=== PATIENT | male | born 1960 | race Caucasian/White ===

== ENCOUNTER → 2016-12-06 | Outpatient (CLI) | payer MEDICAID ==
[2016-12-06 07:13] LABS: Basophils % (A) 0 %; CH 30.3; CHCM 33.3; Eosinophils # (A) 0.2 k/uL (0-0.7); Eosinophils % (A) 3 %; HGB 14.5 gm/dL (13.0-17.5); Luc % (Auto) 3; Lymphocytes # (A) 1.9 k/uL (1.0-4.8); Lymphocytes % (A) 30 %; MCH 29.9 pg (25.0-35.0); MCHC 32.8 g/dL (31.0-37.0); MCV 91.2 fL (80.0-100.0); Mean Platelet Volume 6.9; Monocytes # (A) 0.4 k/uL (0-1.0); Monocytes % (A) 7 %; Neutrophils # (A) 3.6 k/uL (1.3-7.7); Neutrophils % (A) 57 %; RBC 4.83 m/uL (4.30-5.90); WBC 6.4 k/uL (3.8-10.6)
[2016-12-06 07:19] LABS: INR 1.1 (<1.1); Partial Thromboplastin Time 24.1 sec (22.0-30.0); Prothrombin Time 10.7 sec (9.0-12.0)
[2016-12-06 07:31] LABS: Appearance,Urine Clear (Clear); Bilirubin,Urine Negative (Negative); Glucose,Urine (UA) Negative (Negative); Ketones,Urine Negative (Negative); Leukocyte Esterase,Urine Negative (Negative); Nitrite,Urine Negative (Negative); PH, Urine 5.5 (5.0-8.0); Protein,Urine Negative (Negative); Specific Gravity,Urine 1.019 (1.001-1.035); UA Billing (MACRO vs. MICRO) CHEM; Urobilinogen,Urine <2.0 mg/dL (<2.0)
[2016-12-06 07:40] LABS: ALT 40 U/L (21-72); AST 22 U/L (17-59); Alkaline Phosphatase 78 U/L (38-126); Anion Gap 10 mmol/L; Blood Urea Nitrogen 16 mg/dL (9-20); Carbon Dioxide 27 mmol/L (22-30); Chloride 104 mmol/L (98-107); Glucose 112 mg/dL (74-99); Non-African American GFR(MDRD) >60 (>60 ml/min/1.73 sqM); Potassium 4.6 mmol/L (3.5-5.1); Sodium 141 mmol/L (137-145); Total Bilirubin 0.9 mg/dL (0.2-1.3); Total Protein 7.6 g/dL (6.3-8.2)
== END | disposition home or self-care (01) ==
LOC: LABPAT 06:30
PROVIDERS: ATTEND Orthopaedic Surgery
DX: Z01.812 Encounter for preprocedural laboratory examination (principal)
CPT/HCPCS: 36415; 80053; 81003; 85025; 85610; 85730; 87070

== ENCOUNTER 2016-12-30 10:44 | Inpatient (IN) | payer MEDICAID ==
--- NOTE | 2016-12-04 16:41 | CONS ---
DATE OF CONSULTATION: REASON FOR CONSULTATION: Preoperative medical evaluation. HISTORY OF PRESENT ILLNESS: This is a 56-year-old gentleman who is scheduled to undergo left total knee arthroplasty. Patient is seen preoperatively for the same. He recently underwent a right total knee arthroplasty with good results, and due to his continued progressively worsening left knee, he is scheduled for this other surgical procedure. Past medical history is significant for hypertension for the past about 22 years. No history of diabetes, lung disease, liver disease, kidney disease, ulcers, TB, hepatitis. No history of any rheumatic fever, myocardial infarction or CVA. He does have a thyroid goiter. He does have degenerative arthritis. Patient does have some gastroesophageal reflux. Past surgical history has included: 1. Tonsillectomy. 2. Right knee arthroscopy x2. 3. Subsequently a recent right total knee arthroplasty 10/08/16. No other surgeries. No complications during surgeries. PERSONAL HISTORY: Nonsmoker. No alcohol. VACCINATION: None recent. He does not take flu shots. SOCIAL HISTORY: Patient is . 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 Fairly active. FAMILY MEDICAL HISTORY: Father at the age of 64, renal disease, possible coronary artery disease. Mother's history unknown. One brother in good health. Three sisters in good health. Patient has a son and daughter in good health. REVIEW OF SYSTEMS: NEURO: Denies any headaches, dizziness. No double vision, blurred vision. No symptoms of TIA, syncope, seizures. PSYCH: No anxiety, depression. CARDIAC: No chest pain, angina, palpitations. RESPIRATORY: No shortness of breath, cough, hemoptysis. GI: No nausea, vomiting, abdominal pain, diarrhea, constipation. : No symptoms of dysuria, hematuria, urgency, frequency. EXTREMITIES: Pain in the left knee. CONSTITUTIONAL: No fever or chills. MEDICATION HISTORY: Patient takes: 1. Losartan 100 mg daily. 2. Levothyroxine 150 mcg daily. 3. Spironolactone/hydrochlorothiazide 25/25 one daily. 4. Simvastatin 10 mg daily. PHYSICAL EXAMINATION: Pleasant gentleman in no distress. VITAL SIGNS: Blood pressure 120/80. He weighs 250 pounds, 5 feet 11 inches tall. BMI of 34.9. HEENT: Normocephalic. NECK: Supple. No JVD. Pupils reactive. Neck reveals no JVD, carotid bruits. Patient does have a thyroid goiter. CHEST EXAMINATION: Clear to auscultation and percussion. CARDIAC: Normal S1, S2 with no gallops, murmurs, rubs. ABDOMEN: Soft. No palpable masses. Bowel sounds normal. No organomegaly. No abdominal bruits. EXTREMITIES: No edema. Good pulses, both upper and lower extremities. Neurologically awake, alert, oriented with well-coordinated movements. Joints reveal recent right knee arthroplasty with good results. Left knee has degenerative arthritis changes. LABORATORY ASSESSMENT: Pending. Recent EKG was normal. ASSESSMENT: 1. Hypertension, controlled. 2. Thyroid goiter. 3. Degenerative arthritis. PLAN: The patient is stable to undergo the planned surgical procedure. Electrolytes/BUN and creatinine to be checked preoperatively. Patient's condition discussed with the patient. Prognosis guarded.
[2016-12-16 12:14] VITALS: BMI 33.9
[~2016-12-30 10:44] MED LIST: ACETAMINOPHEN TAB 500 MG TAB PO ONE; CLINDAMYCIN 900 MG in DEXTROSE 5% IN WATER 50 ML IVPB ONE; DEXAMETHASONE SOD PHOSPHATE 10 MG/ML 1 ML VIAL IV ONE; HYDROmorphone 1 MG/ML 1 ML SYRINGE IVP PRN; LIDOCAINE 1% 20 ML VIAL (10MG/ML) FOR IV START INTRADERMA PRN; MELOXICAM 7.5 MG TAB PO ONE; MIDAZOLAM 2 MG/2 ML VIAL IV PRN; ONDANSETRON 4 MG/2 ML VIAL IVP ONE; SCOPOLAMINE 1.5MG/72HR PATCH TRANSDERM ONE; TRANEXAMIC ACID 1,000 MG in SODIUM CHLORIDE 0.9% 100 ML IVPB ONE; fentaNYL (PF) 50 MCG/ML 20 ML VIAL IVP PRN
[2016-12-30] MEDS: LACTATED RINGERS 1,000 ML IV SCH ×2 (11:24→23:45)
[2016-12-30] MEDS ORDERED: fentaNYL (PF) 50 MCG/ML 2 ML AMP IV ONE (11:31)
[2016-12-30] MEDS ORDERED: ROPIVACAINE 1,100 MG, SODIUM CHLORIDE 0.9% 330 ML MISCELLANE PRN ×2 (12:15)
--- NOTE | 2016-12-30 12:17 | P.ONQ ---
Anesthesiology Proc Note - PNB - Peripheral Nerve Block Performed Left Adductor Canal Infusion Time Out Performed: Yes Indication: Acute Post-Operative Pain, Analgesia Specifically requested for management of pain by DrYariel: Vasile Plasencia Sedation Type: Sedate with meaningful contact maintained Preparation: Sterile Prep Position: Supine Catheter Depth at Skin (cm): 5 Catheter: Indwelling Needle Types: On-Q Needle Size: 100mm (4") Needle Gauge: 20 Technique: Ultrasound Injectate: 0.5% Ropivacaine (see comment for volume) (20 cc) Blood Aspirated: No Pain Paresthesia on Injection Noted: No Resistance on Injection: Normal Events: Uneventful and Well Tolerated
[2016-12-30] MEDS ORDERED: fentaNYL (PF) 50 MCG/ML 2 ML AMP ONE (12:25)
[2016-12-30] MEDS ORDERED: MIDAZOLAM 2 MG/2 ML VIAL ONE (12:25)
[2016-12-30] MEDS ORDERED: PHENYLEPHRINE-0.9% NACL SYG 1 MG/10 ML SYRINGE ONE (12:25)
[2016-12-30] MEDS ORDERED: TRANEXAMIC ACID 1,000 MG/10 ML VIAL ONE (12:25)
[2016-12-30] MEDS ORDERED: SODIUM CHLORIDE 0.9% 100 ML BAG ONE (12:25)
[2016-12-30] MEDS ORDERED: PROPOFOL 10 MG/ML 20 ML VIAL IV ONE (12:25)
[2016-12-30] MEDS ORDERED: CLINDAMYCIN 1,800 MG in SODIUM CHLORIDE 0.9% IRRIGATIO 3,000 ML IRRIGATION ONE (12:35)
[2016-12-30] MEDS: ROPIVACAINE 246.25 MG, EPINEPHrine 0.5 MG, KETOROLAC 30 MG, cloNIDine HCL/PF 80 MCG, WA... MISCELLANE ONE ×15 (12:52→17:56)
[2016-12-30] MEDS ORDERED: LACTATED RINGERS 1,000 ML IV ONE (13:16)
--- NOTE | 2016-12-30 14:06 | P.OP ---
Date of Procedure: 12/30/16 Preoperative Diagnosis: Severe osteoarthritis left knee Postoperative Diagnosis: Severe osteoarthritis left knee Procedure(s) Performed: Left total knee arthroplasty Implants: Gutierrez and Nephew Oxinium femoral component size 7, left Gutierrez & Nephew Maegan II left nonporous tibial baseplate size 8 Gutierrez [employer] Nephew size 11 mm Legion XLPE dished articular insert, size 7-8 Gutierrez [employer]hew Maegan II resurfacing patellar component, 35 mm All components were cemented using Tana bone cement.. The articulation is ceramic on polyethylene. Anesthesia: spinal Surgeon: Vasile Plasencia Liquefaction And Regasification Helper #1: Jasmin Breaux Estimated Blood Loss (ml): 50 Pathology: other (Bone and cartilage) Condition: stable Disposition: PACU Indications for Procedure: After failure of conservative treatment we discussed the surgical and nonsurgical treatment options at length. Patient wishes to proceed with a total knee arthroplasty. Complications specific to this procedure were discussed at length, including but not limited to infection, bleeding, stiffness , and nerve injury. Patient is aware of all these complications and informed consent was obtained Operative Findings: The operative findings are consistent with severe osteoarthritis of the left knee. Description of Procedure: Patient was seen in the preoperative area consent was reviewed and operative site was marked with a skin marker. Patient was then brought to the operating room and given preoperative antibiotics intravenously. A spinal anesthetic was administered by the anesthesia department. A tourniquet was placed on the upper thigh and the lower extremity was prepped and draped in usual sterile fashion. A gram of transexamic acid was given. A universal timeout was then performed which confirmed the patient's name, surgical site, ALLERGIES, and consent. The lower extremity was then exsanguinated and tourniquet was inflated to 250 mmHg. A standard and anterior midline approach to the knee was performed. The skin and subcutaneous tissue was dissected down to the patellar tendon. A medial parapatellar arthrotomy was then performed. The knee was then extended, the patellar was everted, and the knee was again flexed. Anterior horns of both menisci were excised, and a release was performed to the posterior medial aspect of the knee. On gross visual inspection, there was complete loss of articular cartilage in the medial and patellofemoral joint spaces. There was also significant cartilage damage in the lateral compartment. There were multiple periarticular osteophytes which were then removed with a Ronguer. The femoral canal was then opened with the appropriate drill, and the intramedullary femoral cutting guide was then placed and set for 4 of valgus. The distal femoral cutting block was then pinned in place, and the distal femur was then cut. The cutting block was then removed and the cut was checked for flatness. Next, the sizing guide was then placed and set for 3 external rotation based off of the epicondylar axis and Whitesides line. After the femur was sized, the appropriate 4-in-1 cutting block was then pinned in place. The anterior condyles were cut without notching. The posterior and chamfer cuts were performed while protecting the collateral ligaments. The cutting block was then removed, and the femoral canal was plugged with autologous bone. Attention was then directed to the tibia. The remaining ACL was removed with a Ronguer, and the tibia was then gently subluxed forward with a large bent knee retractor. Any remaining menisci was excised. The posterior lateral corner was cauterized in order to cauterize the lateral geniculate artery. The extra medullary tibial cutting guide was then placed, set for the appropriate rotation , slope, and depth of resection. The proximal tibia cutting guide was then pinned in place. Proximal tibia was then cut and sized. Next trials were then placed with the appropriate-sized insert. The knee was able to fully extend and flex to 130 and was stable throughout all range of motion. The knee was then extended, patella everted. Patella was then measured, and then using an osteotomy guide, the patella was cut at the appropriate level. The patella was then measured and drilled and the patella trial was then placed. The knee was then taken through range of motion with the patella trial and the patella tracked normally. The knee was then extended patella trial was then removed and the patella was everted. Knee was then flexed and lug holes were drilled through the femoral trial and the femoral trial was then removed. The tibial was then exposed, and the tibial broach guide was then pinned in place after it was set for the appropriate rotation to allow for the most coverage without overhang. The tibia was then broached. The cut surfaces of bone were then irrigated with pulsatile lavage. The posterior structures were injected with the ropivacaine solution. The knee was also irrigated with Irrisept solution. The components were then opened, the cement was mixed, and the components were then cemented in place. The cement was allowed to harden with the knee in full extension. While the cement was hardening, the remaining soft tissues were injected with the ropivacaine solution. After the cemented hardened. The tourniquet was released, and hemostasis was obtained. A second gram of transexamic acid was given. The knee was again irrigated. The knee was again taken through range of motion and found to be stable throughout all range of motion of 0-130, and the patella tracked normally. The fascia was then closed with #2 strata fix suture. The subcutaneous tissue was closed with 3-0 Vicryl and 3-0 strata fix. Dermabond tape was used for the skin, and the patient was placed in a sterile dressing. Patient was then transferred to recovery room in stable condition. The service assistant CRISTI Griffin was required due the complexity surgery and the need for a skilled surgical services tech. She assisted in positioning, draping , retraction, and closure of the wound.
[2016-12-30] MEDS ORDERED: HYDROmorphone 1 MG/ML 1 ML SYRINGE IVP PRN ×3 (14:21)
[2016-12-30] MEDS ORDERED: MAGNESIUM HYDROXIDE 2,400 MG/10 ML CUP PO PRN (14:21)
[2016-12-30] MEDS ORDERED: ONDANSETRON 4 MG/2 ML VIAL IVP PRN (14:21)
[2016-12-30] MEDS ORDERED: DIAZEPAM 5 MG TAB PO PRN ×2 (14:21)
[2016-12-30] MEDS ORDERED: BISACODYL 10 MG SUPP RECTAL PRN (14:21)
[2016-12-30] MEDS ORDERED: HYDROcodone/APAP 5-325MG 1 EACH TAB PO PRN (14:21)
[2016-12-30] MEDS ORDERED: NALOXONE 0.4 MG/ML 1 ML VIAL IV PRN (14:21)
[2016-12-30] MEDS ORDERED: hydrOXYzine PAMOATE 25 MG CAP PO PRN (14:21)
--- NOTE | 2016-12-30 14:48 | XR ---
EXAMINATION TYPE: XR knee limited LT DATE OF EXAM: 12/30/2016 2:35 PM COMPARISON: NONE HISTORY: Post op FINDINGS: There is a prosthetic knee in near anatomic alignment. There is soft tissue edema and emphysema. Sl ight tilting of the patellar component. IMPRESSION: 1. Postoperative change. Appears in near-anatomic alignment
[2016-12-30] MEDS: CLINDAMYCIN 900 MG in DEXTROSE 5% IN WATER 50 ML IVPB SCH ×4 (17:58→23:14)
[2016-12-30] MEDS: SODIUM CHLORIDE 0.9% 1,000 ML IV SCH ×2 (17:58→23:45)
--- NOTE | 2016-12-30 19:20 | P.PN ---
Subjective Principal diagnosis: Status post left total knee arthroplasty This 56-year-old gentleman is status post left total knee arthroplasty today. Following the patient upon the request the surgeon for medical management. Patient has history of hypothyroidism and is significantly enlarged thyroid goiter. He also has a history of hypertension on medical therapy. No history of any coronary artery disease. Patient is doing fairly well postoperatively with no symptoms of pain in the left knee or any chest pain headaches or shortness of breath. REVIEW OF SYSTEMS: Neuro: Denies any headaches dizziness. Psych: Denies anxiety depression feels oriented. Cardiac: Denies chest pain and angina palpitations. Respiratory: Denies shortness of breath cough. GI: Denies nausea vomiting or abdominal pain. No diarrhea or constipation, no bowel movement yet. : Denies dysuria hematuria. Extremities: Denies pain. No edema. Skin: Intact. Constitutional: No fever, chills. Objective - Vital Signs Vital signs: Vital Signs Temp 97.9 F 12/30/16 15:15 Pulse 74 12/30/16 15:15 Resp 17 12/30/16 15:15 BP 138/76 12/30/16 17:15 Pulse Ox 95 12/30/16 15:15 Intake & Output 12/30/16 12/30/16 12/31/16 06:59 18:59 06:59 Intake Total 2137 Output Total 50 Balance 7 Weight 113.39 kg Intake: IV 1657 Oral 480 Output: Estimated Blood Loss 50 PHYSICAL EXAMINATION: Cooperative, at present in no acute distress. HEENT: Neck supple. No JVD. Thyroid goiter present Chest: Clear to auscultation percussion. Cardiac: Normal S1-S2 no gallops no murmur . Abdomen: Soft bowel sounds present. Extremities: No edema status post left knee arthroplasty Neurologically: Awake alert oriented with well coordinated movements both upper extremities Assessment and Plan Plan: ASSESSMENT: 1. Hypertension controlled. 2. History of hypothyroidism on replacement therapy. 3. Thyroid goiter with no symptoms. 4. Degenerative arthritis status post left total knee arthroplasty. PLAN: Continue present medical regimen. Patient's condition discussed with the patient and family, medications reconciled.
[2016-12-30] MEDS: SENNOSIDES-DOCUSATE SODIUM 1 EACH TAB PO SCH (20:04)
[2016-12-30] MEDS: ASPIRIN 325 MG TAB PO SCH (20:07)
[2016-12-30] MEDS: ATORVASTATIN 10 MG TAB PO SCH (20:07)
[2016-12-30] MEDS: HYDROcodone/APAP 5-325MG 1 EACH TAB PO PRN (22:23)
[2016-12-31] MEDS: HYDROcodone/APAP 5-325MG 1 EACH TAB PO PRN ×3 (05:17→21:50)
[2016-12-31] MEDS: LEVOTHYROXINE 75 MCG TAB PO SCH (05:18)
[2016-12-31] MEDS: ASPIRIN 325 MG TAB PO SCH ×2 (07:38→21:50)
[2016-12-31] MEDS: MELOXICAM 7.5 MG TAB PO SCH (07:38)
[2016-12-31] MEDS: LOSARTAN 50 MG TAB PO SCH (07:38)
--- NOTE | 2016-12-31 08:16 | P.PN ---
Subjective This 56-year-old gentleman is status post left total knee arthroplasty today. Following the patient upon the request the surgeon for medical management. Patient has history of hypothyroidism and is significantly enlarged thyroid goiter. He also has a history of hypertension on medical therapy. No history of any coronary artery disease. Patient is doing fairly well postoperatively with no symptoms of pain in the left knee or any chest pain headaches or shortness of breath. REVIEW OF SYSTEMS: Neuro: Denies any headaches dizziness. Psych: Denies anxiety depression feels oriented. Cardiac: Denies chest pain and angina palpitations. Respiratory: Denies shortness of breath cough. GI: Denies nausea vomiting or abdominal pain. No diarrhea or constipation, no bowel movement yet. : Denies dysuria hematuria. Extremities: Denies pain. No edema. Skin: Intact. Constitutional: No fever, chills. History present illness: This 56-year-old gentleman is status post left total knee arthroplasty. He complains of some pain today at the left knee. Otherwise denies any major symptoms. He does have history of hypertension which is adequately controlled. No fever chills or nausea vomiting. REVIEW OF SYSTEMS: Neuro: Denies any headaches dizziness. Psych: Denies anxiety depression feels oriented. Cardiac: Denies chest pain and angina palpitations. Respiratory: Denies shortness of breath cough. GI: Denies nausea vomiting or abdominal pain. No diarrhea or constipation, no bowel movement yet. : Denies dysuria hematuria and no Worrell catheter Extremities: Pain left knee joint. Constitutional: No fever, chills. Objective - Vital Signs Vital signs: Vital Signs Temp 97.5 F L 12/31/16 07:00 Pulse 92 12/31/16 07:00 Resp 16 12/31/16 07:00 BP 134/86 12/31/16 07:00 Pulse Ox 92 L 12/31/16 07:00 Intake & Output 12/30/16 12/31/16 12/31/16 18:59 06:59 18:59 Intake Total 2137 400 Output Total 50 700 Balance 2086 -300 Weight 113.39 kg Intake: IV 1657 400 Sodium Chloride 0.9% 1, 400 000 ml @ 100 mls/hr IV . Q10H [facility] Rx#:[id number] Oral 480 Output: Urine 700 Estimated Blood Loss 50 Other: Voiding Method Urinal PHYSICAL EXAMINATION: Cooperative, at present in no acute distress. HEENT: Neck supple. No JVD. Thyroid goiter present Chest: Clear to auscultation percussion. Cardiac: Normal S1-S2 no gallops no murmur . Abdomen: Soft bowel sounds present. Extremities: Trace edema left ankle , pain at left knee with movements Neurologically: Awake alert oriented with well coordinated movements of both upper extremities Assessment and Plan Plan: ASSESSMENT: 1. Hypertension controlled. 2. Status post left total knee arthroplasty. 3. Degenerative arthritis. 4. Thyroid goiter with no symptoms. PLAN: Continue present medical regimen. Patient's condition discussed with patient and family..
[2016-12-31 08:50] LABS: Basophils % (A) 0 %; CHCM 33.4; Eosinophils % (A) 0 %; HCT 41.9 % (39.0-53.0); HDW 2.37; HGB 13.6 gm/dL (13.0-17.5); Luc # (Auto) 0.19; Luc % (Auto) 1; Lymphocytes # (A) 2.4 k/uL (1.0-4.8); Lymphocytes % (A) 15 %; MCH 29.4 pg (25.0-35.0); MCHC 32.5 g/dL (31.0-37.0); MCV 90.3 fL (80.0-100.0); Mean Platelet Volume 6.8; Monocytes % (A) 7 %; Neutrophils # (A) 11.9 k/uL (1.3-7.7); Neutrophils % (A) 77 %; RBC 4.64 m/uL (4.30-5.90); RDW 12.8 % (11.5-15.5); WBC 15.5 k/uL (3.8-10.6); WBC (Perox) 16.41
[2016-12-31] MEDS ORDERED: SPIRONOLACTONE-HCTZ 25-25MG 1 EACH TAB PO SCH (09:00)
--- NOTE | 2016-12-31 10:17 | P.PN ---
Progress Note - Text 0852. Anesthesia POD 1. Patient is status post left TKR under spinal anesthesia with a left adductor canal catheter placed for postoperative pain relief. Catheter site is clean dry and intact visual analog pain score is 2 at rest with 0.2% ropivacaine running at 8 mL per hour.
[2016-12-31] MEDS: SODIUM CHLORIDE 0.9% 1,000 ML IV SCH (12:28)
--- NOTE | 2016-12-31 20:12 | P.PN ---
Subjective Principal diagnosis: Status post left total knee arthroplasty This is a pleasant 56-year-old gentleman who is status post left total knee arthroplasty. Today's postoperative day #1. The patient is seen and evaluated at bedside today. He states that his pain is well-controlled. He does complain of some numbness about the anterior aspect of his knee extending to the thigh. He's been up ambulating with physical therapy. He wishes to hold his discharge until tomorrow. Objective - Vital Signs Vital signs: Vital Signs Temp 98.5 F 12/31/16 19:03 Pulse 102 H 12/31/16 19:03 Resp 17 12/31/16 19:03 BP 117/86 12/31/16 19:03 Pulse Ox 92 L 12/31/16 19:03 Intake & Output 12/31/16 12/31/16 01/01/17 06:59 18:59 06:59 Intake Total 400 620 600 Output Total 700 Balance -300 620 600 Intake: IV 400 200 Sodium Chloride 0.9% 1, 400 200 000 ml @ 100 mls/hr IV . Q10H [facility] Rx#:[id number] Oral 420 600 Output: Urine 700 Other: Voiding Method Urinal # Voids 1 - Exam The patient does not appear in acute distress. Alert and orientated 3. Dressing is clean dry and intact. Incision appears fine with no erythema or active drainage. Calf is soft and nontender. Good foot and ankle motion without difficulty. Sensation and circulatory status is intact. - Labs CBC & Chem 7: 12/31/16 08:21 Labs: Abnormal Lab Results - Last 24 Hours (Table) 12/31/16 Range/Units 08:21 WBC 15.5 H (3.8-10.6) k/uL Neutrophils # 11.9 H (1.3-7.7) k/uL Assessment and Plan (1) Primary localized osteoarthritis of left knee Status: Acute Plan: 1. Continue with routine postoperative care. 2. Anticoagulation with aspirin. 3. Physical therapy and CPM today. 4. Appreciate input from medicine. 5. Anticipate discharge to home with home care likely tomorrow.
[2016-12-31] MEDS: ATORVASTATIN 10 MG TAB PO SCH (21:50)
[2016-12-31] MEDS: SENNOSIDES-DOCUSATE SODIUM 1 EACH TAB PO SCH (21:50)
[2017-01-01] MEDS: LEVOTHYROXINE 75 MCG TAB PO SCH (05:58)
[2017-01-01] MEDS: LOSARTAN 50 MG TAB PO SCH (09:29)
[2017-01-01] MEDS: MELOXICAM 7.5 MG TAB PO SCH (09:30)
[2017-01-01] MEDS: ASPIRIN 325 MG TAB PO SCH (09:30)
[2017-01-01 09:35] VITALS: BP 118/80; PULSE 104; RESP 14; TEMP 98.1
--- NOTE | 2017-01-01 09:49 | P.DS ---
Providers Date of admission: 12/30/16 10:44 Expected date of discharge: 01/01/17 Attending physician: Vasile Plasencia Consults: 12/30/16 14:21 Consult Physician Routine Consulting Provider: Leo Aviles Consult Reason/Comments: medical management Do you want consulting provider notified?: Yes Primary care physician: Leo Aviles - Discharge Diagnosis(es) (1) Primary localized osteoarthritis of left knee Current Visit: Yes Status: Acute (2) Status post left knee replacement Current Visit: No Status: Acute Hospital Course: This is a pleasant 56-year-old gentleman last seen in our office with complaints of left knee pain. Patient has known history of degenerative arthritis of the left knee and presented to discuss options. After discussion and consideration, the patient elected to proceed with a left total knee arthroplasty. Patient was seen preoperatively, and medically cleared for surgery by his primary care physician. Patient was admitted to [facility] and underwent left total knee arthroplasty with Dr. Vasile Plasencia. The procedure was performed without complications or sequelae. The patient is seen and evaluated at bedside today. Pain is well-controlled. Patient has no new complaints today and denies any fevers, chills, nausea, vomiting, or shortness of breath. He is feeling better today. Dressing is clean dry and intact. Incision looks fine with no erythema or active drainage. He is able to perform straight leg raise. Calf is soft and nontender. Patient has full foot and ankle motion without difficulty. Patient's left lower extremity is neurovascularly intact. The patient is orthopedically stable for discharge today. Pertinent Studies: Laboratory Tests 12/31/16 08:21 WBC 15.5 H RBC 4.64 Hgb 13.6 Hct 41.9 MCV 90.3 MCH 29.4 Patient Condition at Discharge: Good Plan - Discharge Summary New Discharge Prescriptions: Aspirin 325 mg PO BID #60 tab Hydrocodone/Acetaminophen [[place] 5-325] 1 - 2 each PO Q6HR PRN #90 tab PRN Reason: Pain Sennosides-Docusate Sodium [Senokot-S] 2 tab PO DAILY #60 tablet Discharge Medication List Levothyroxine Sodium [Unithroid] 150 mcg PO DAILY 12/11/15 [History] Losartan Potassium 100 mg PO DAILY 12/11/15 [History] Simvastatin 10 mg PO HS 12/11/15 [History] Spironolact/Hydrochlorothiazid [Aldactazide 25-25 MG] 1 tab PO Q48H 12/11/15 [ History] traMADol HCL/ACETAMINOPHEN [Tramadol-Acetaminophn 37.5-325] 1 tab PO TID PRN [History] Multivitamins, Thera [Multivitamin] 1 tab PO DAILY 10/01/16 [History] Aspirin 325 mg PO BID tab 01/01/17 [Rx] Aspirin 325 mg PO BID #60 tab 01/01/17 [Rx] Hydrocodone/Acetaminophen [[place] 5-325] 1 - 2 each PO Q6HR PRN #90 tab 01/01/17 [Rx] Sennosides-Docusate Sodium [Senokot-S] 2 tab PO DAILY #60 tablet 01/01/17 [Rx] Follow up Appointment(s)/Referral(s): [facility], [NON-STAFF] - 1 Week Vasile Plasencia DO [Doctor of Osteopathic Medicine] - 2 Weeks Ambulatory/Diagnostic Orders: Continuous Passive Motion (CPM) Machine [DME.AMB1] Location: Determined By Patient Activity/Diet/Wound Care/Special Instructions: call [facility] when you get discharge so they can delivered your CPM Weightbearing as tolerated with a walker CPM daily Daily dressing changes, keep incision clean and dry [facility] with questions or concerns [phone] Discharge Disposition: HOME WITH HOME HEALTH SERVICES
--- NOTE | 2017-01-02 05:52 | PN ---
CHIEF COMPLAINT: Re-evaluation. HISTORY OF PRESENT ILLNESS: This 56-year-old gentleman who is status post left total knee arthroplasty. Patient is doing fairly well. He has underlying history of hypertension, hypothyroidism, on medical therapy. The patient denies any significant symptoms except for some pain in the left knee. It is better and is able to tolerate. He did sleep through the night. REVIEW OF SYSTEMS: NEURO: Denies any headaches, dizziness. PSYCH: No anxiety. CARDIAC: No chest pain, angina, palpitation. RESPIRATORY: No shortness of breath, cough. GI: No nausea, vomiting, abdominal pain, diarrhea. : No symptoms of dysuria, hematuria. EXTREMITIES: No pain except to the left knee. CONSTITUTIONAL: No fever or chills. PHYSICAL EXAMINATION: Pleasant gentleman in no distress. VITAL SIGNS: Temperature is 98.1, pulse 104, respirations 14, blood pressure 118/80, pulse ox is 95% on room air. HEENT: Normocephalic. NECK: No JVD. Chest is clear to auscultation. CARDIAC: Normal S1, S2 with no gallops, murmurs. ABDOMEN: Soft. Bowel sounds present. EXTREMITIES: Trace edema left ankle. NEUROLOGICALLY: Awake, alert, oriented with well coordinated movements. Laboratory assessment includes a CBC yesterday which revealed hemoglobin 13.6, white count 15.5. ASSESSMENT: 1. Hypertension on medical therapy. 2. Status post left total knee arthroplasty. 3. Thyroid goiter. PLAN: The patient is stable. Continue present medical regimen. The patient's condition discussed with the patient. Prognosis guarded. Patient to ambulate. Continue present medications.
== END 2017-01-01 11:50 | disposition home health service (06) | DRG 470 ==
LOC: 2ORMAIN 10:44 → 3SUR 14:25
PROVIDERS: ADMIT Orthopaedic Surgery; ATTEND Orthopaedic Surgery
PROC: 0SRD0J9 Replacement of Left Knee Joint with Synthetic Substitute, Cemented, Open Approach (ICD-10-PCS; principal; 2016-12-30 12:30)
DX: M17.12 Unilateral primary osteoarthritis, left knee (principal); I10 Essential (primary) hypertension; E03.9 Hypothyroidism, unspecified; E04.9 Nontoxic goiter, unspecified; K21.9 Gastro-esophageal reflux disease without esophagitis; Z88.0 Allergy status to penicillin; Z79.899 Other long term (current) drug therapy
CPT/HCPCS: 85025; 88300

== ENCOUNTER → 2017-09-17 | Outpatient (CLI) | payer MEDICAID ==
[2017-09-17 11:38] LABS: Anion Gap 9 mmol/L; Blood Urea Nitrogen 15 mg/dL (9-20); Carbon Dioxide 25 mmol/L (22-30); Chloride 106 mmol/L (98-107); Cholesterol 134 mg/dL (<200); Glucose 109 mg/dL (74-99); HDL Cholesterol 37 mg/dL (40-60); Non-African American GFR(MDRD) >60 (>60 ml/min/1.73 sqM); Potassium 4.5 mmol/L (3.5-5.1); Sodium 140 mmol/L (137-145)
== END | disposition home or self-care (01) ==
LOC: LABWHC1 06:36
PROVIDERS: ATTEND Internal Medicine
DX: E78.5 Hyperlipidemia, unspecified (principal); I10 Essential (primary) hypertension; Z12.5 Encounter for screening for malignant neoplasm of prostate
CPT/HCPCS: 80061; 80048; 36415; G0103

== ENCOUNTER 2018-06-08 17:02 | Emergency (ER) | payer MEDICAID ==
[2018-06-08 17:57] VITALS: RESP 18
--- NOTE | 2018-06-08 18:23 | XR ---
EXAMINATION TYPE: XR shoulder complete RT DATE OF EXAM: 06/08/2018 COMPARISON: NONE HISTORY: Shoulder pain TECHNIQUE: 3 views FINDINGS: There is some mild spurring on the humeral head. I see no fracture nor dislocation. IMPRESSION: Minimal spurring. Otherwise negative exam. No fracture.
--- NOTE | 2018-06-08 18:24 | XR ---
EXAMINATION TYPE: XR elbow complete RT DATE OF EXAM: 06/08/2018 COMPARISON: NONE HISTORY: Shoulder and elbow pain TECHNIQUE: 3 views FINDINGS: There is some spurring on the coronoid process of the ulna. There is no sign of elbow joint effusion. I see no fracture nor dislocation. There is calcification adjacent to the medial humeral c ondyle consistent with old injury. IMPRESSION: No acute abnormality of the right elbow.
--- NOTE | 2018-06-08 19:18 | ED ---
Upper Extremity HPI - General Chief Complaint: Extremity Injury, Upper Stated Complaint: Fell elbow injury Time Seen by Provider: 06/08/18 19:03 Source: patient Mode of arrival: ambulatory Limitations: no limitations - History of Present Illness Initial Comments: Patient is a 57-year-old female chief complaint of right elbow and right shoulder injury. Patient reports that he slipped earlier this evening and fell. Patient states that he has had no pain with range motion of his hands or wrists. He denies any recent fever or chills. Denies any head injury or neck injury.Patient denies any recent fever, chills, shortness of breath, chest pain , back pain, abdominal pain, nausea vomiting, numbness or tingling, dysuria or hematuria, constipation or diarrhea, headaches or visual changes, or any other current symptoms. She is being seen with his daughter and . - Related Data Home Medications Medication Instructions Recorded Confirmed Levothyroxine Sodium [Unithroid] 150 mcg PO DAILY 12/11/15 12/30/16 Losartan Potassium 100 mg PO DAILY 12/11/15 12/30/16 Simvastatin 10 mg PO HS 12/11/15 12/30/16 Spironolact/Hydrochlorothiazid 1 tab PO Q48H 12/11/15 12/30/16 [Aldactazide 25-25 MG] traMADol HCL/ACETAMINOPHEN 1 tab PO TID PRN 12/11/15 12/30/16 [Tramadol-Acetaminophn 37.5-325] Multivitamins, Thera [Multivitamin 1 tab PO DAILY 10/01/16 12/30/16 (formulary)] Previous Rx's Medication Instructions Recorded Aspirin 325 mg PO BID tab 01/01/17 Aspirin 325 mg PO BID #60 tab 01/01/17 Hydrocodone/Acetaminophen [[place] 1 - 2 each PO Q6HR PRN #90 tab 01/01/17 5-325] Sennosides-Docusate Sodium 2 tab PO DAILY #60 tablet 01/01/17 [Senokot-S] Ibuprofen 600 mg PO TID #30 tablet 06/08/18 traMADol HCl [Ultram] 50 mg PO Q6HR PRN 3 Days #15 tab 06/08/18 Allergies Allergy/AdvReac Type Severity Reaction Status Date / Time amoxicillin Allergy FINGERTIPS Verified 06/08/18 17:55 RED AND NUMB Review of Systems ROS Statement: Those systems with pertinent positive or pertinent negative responses have been documented in the HPI. ROS Other: All systems not noted in ROS Statement are negative. Past Medical History Past Medical History: GERD/Reflux, Hyperlipidemia, Hypertension, Osteoarthritis (OA), Thyroid Disorder History of Any Multi-Drug Resistant Organisms: None Reported Past Surgical History: Orthopedic Surgery, Tonsillectomy Additional Past Surgical History / Comment(s): RT KNEE X 3, 11--16 TOTAL RT KNEE Past Anesthesia/Blood Transfusion Reactions: No Reported Reaction Past Psychological History: No Psychological Hx Reported Smoking Status: Never smoker Past Alcohol Use History: None Reported Past Drug Use History: None Reported - Past Family History Mother Family Medical History: No Reported History General Exam - General Exam Comments Initial Comments: This is a 57-year-old male. Alert and oriented. No significant distress. Limitations: no limitations General appearance: alert, in no apparent distress Head exam: Present: atraumatic, normocephalic, normal inspection Eye exam: Present: normal appearance, PERRL, EOMI. Absent: scleral icterus, conjunctival injection, periorbital swelling ENT exam: Present: normal exam Neck exam: Present: normal inspection. Absent: tenderness, meningismus, lymphadenopathy Respiratory exam: Present: normal lung sounds bilaterally. Absent: respiratory distress, wheezes, rales, rhonchi, stridor Cardiovascular Exam: Present: regular rate, normal rhythm, normal heart sounds. Absent: systolic murmur, diastolic murmur, rubs, gallop, clicks GI/Abdominal exam: Present: soft, normal bowel sounds. Absent: distended, tenderness, guarding, rebound, rigid Extremities exam: Present: normal inspection, full ROM, normal capillary refill. Absent: tenderness, pedal edema, joint swelling, calf tenderness Right Shoulder Exam: Present: normal inspection, tenderness. Absent: full ROM ( Patient reports pain with abduction. Unable to perform Apley's scratch test. Tenderness over the deltoid.) Upper Arm exam: Present: normal inspection, full ROM Elbow exam: Present: full ROM, swelling, ecchymosis. Absent: normal inspection Neuro motor exam: Present: wrist extension intact, thumb opposition intact, thumb IP flexion intact, thumb adduction intact, fingers 2-5 abduction intact Vascular: Present: normal capillary refill Back exam: Present: normal inspection Neurological exam: Present: alert, oriented X3, CN II-XII intact Course Vital Signs 06/08/18 06/08/18 17:55 19:26 Temperature 98.5 F 96.9 F L Pulse Rate 70 77 Respiratory 18 18 Rate Blood Pressure 164/89 155/85 O2 Sat by Pulse 95 98 Oximetry Medical Decision Making - Medical Decision Making Patient [id number] male presents today chief complaint of right elbow pain and right shoulder pain after slip and fall. Patient reports pain with abduction and flexion and extension of the shoulder. He does have full range of motion of the elbow and this noted contusions. X-ray of the shoulder and elbow are negative for any acute fracture. Due to the mechanism of injury do believe the Patient has a rotator cuff injury. Unable to perform Apley's scratch test. Given a shoulder sling. Referral for orthopedics. - Radiology Data Radiology results: report reviewed Shoulder x-ray shows minimal spurring of his negative exam. No fracture. No acute abdomen on the right elbow noted. Disposition Clinical Impression: Elbow contusion, Dysfunction of right rotator cuff Disposition: HOME SELF-CARE Condition: Good Instructions: Rotator Cuff Injury (ED) Additional Instructions: Patient advised to follow-up with emergency management program specialist. Patient should take antibiotic treatment menses pain medicine as needed. Wear the sling. Return to the emergency department if any alarming signs or symptoms occur. Prescriptions: Ibuprofen 600 mg PO TID #30 tablet traMADol HCl [Ultram] 50 mg PO Q6HR PRN 3 Days #15 tab PRN Reason: Pain Is patient prescribed a controlled substance at d/c from ED?: Yes When asked, does pt state using other controlled substances?: No If prescribed controlled substance>3 days was MAPS reviewed?: Prescribed <3 Days If opioid is for acute pain is fill amount 7 days or less?: No If Rx opioid, was Start Talking consent form obtained?: No Referrals: Leo Aviles MD [Primary Care Provider] - 1-2 days Time of Disposition: 19:14
[2018-06-08 19:27] VITALS: BP 155/85; PULSE 77; TEMP 96.9
== END 2018-06-08 19:26 | disposition home or self-care (01) ==
LOC: EC 17:02
DX: S50.01XA Contusion of right elbow, initial encounter (principal); M75.81 Other shoulder lesions, right shoulder; E78.5 Hyperlipidemia, unspecified; I10 Essential (primary) hypertension; E07.9 Disorder of thyroid, unspecified; Z79.899 Other long term (current) drug therapy; Z88.0 Allergy status to penicillin; W01.0XXA Fall on same level from slipping, tripping and stumbling without subsequent striking against object, initial encounter
CPT/HCPCS: 99283

== ENCOUNTER → 2018-06-10 | Outpatient (CLI) | payer MEDICAID ==
--- NOTE | 2018-06-10 15:19 | MR ---
EXAMINATION TYPE: MR shoulder RT wo con DATE OF EXAM: 06/10/2018 COMPARISON: 06/08/2018 right shoulder radiograph HISTORY: Right shoulder pain TECHNIQUE: Multiplanar, multisequence imaging of the right shoulder is performed without contrast. FINDINGS: Rotator Cuff: Supraspinatus: There is a partial thickness tear of the insertional fibers of the supraspinatus measu ring 0.6 x 0.7 cm superimposed upon tendinopathy. Tendinopathy appears moderately increased intrinsic signal of the myotendinous junction and distal tendinous fibers. 3 mm intrasubstance tear is also se en within the supraspinatus on coronal image 11 of the T2 fat sat sequence. Infraspinatus: There is moderate infraspinatus tendinopathy with increased signal within the myotendi nous junction and distal fibers as well as fraying of the bursal surface fibers. Subchondral cysts ar e seen at the insertion on the humeral head. Teres minor: Teres minor is of normal muscular volume and signal although there is joint fluid seen d eep to the teres minor. Subscapularis: On axial imaging there is a full-thickness tear of the subscapularis with undulation o f the fibers and retraction approximately 3 cm on axial PD fat-sat image 11. There is uncovering of t he bicipital groove although the diminutive biceps tendon is not appear grossly displaced. There is i ncreased signal throughout the scapularis indicative of myositis. Acromioclavicular Joint: There is moderate acromioclavicular arthropathy with capsular hypertrophy, m arginal osteophytes and subchondral cysts minimally impressing upon the supraspinatus. Glenohumeral Joint: There is joint space narrowing and marginal osteophytes of both the glenoid and h umerus that are small. Subchondral cysts are also seen in the humeral head. Overall findings relayed to moderate glenohumeral arthropathy. Labrum: There is a nondisplaced superior labral anterior posterior tear. Inferior labrum appears inta ct with mild degeneration. Biceps Tendon: There is a split tear of the long head of the biceps tendon in its extra-articular por tion extending into the anterior articular portion with only diminutive fibers remaining. At the inse rtion of the biceps at the biceps anchor no remaining tissues are seen. This may relate to very sever e tendinopathy or near full-thickness tear. Bone marrow signal: No focal abnormal marrow signal is appreciated. Other: There is a small joint effusion with edema seen in the axilla inferior to the axillary recess. Intramuscular edema is also seen within the subscapularis. There is a small amount of fluid within t he subdeltoid/subacromial bursa. IMPRESSION: 1. Full thickness retracted tear with myositis and surrounding joint effusion on the subscapularis. 2. Long segment split tear of the extra-articular tendon of the long head of the biceps with extent i nto the intra-articular portion. The insertion is poorly visualized and could relate to near complete thickness tear or extensive tendinosis. 3. Partial thickness tear of the insertional fibers of the supraspinatus measuring 0.6 x 0.7 cm with moderate tendinopathy. 4. Nondisplaced superior labral anterior posterior tear and inferior labral degeneration. 5. Small joint effusion with extension into the axillary recess. Fluid in the subdeltoid/subacromial bursa may relate to bursitis. 6. Moderate infraspinatus tendinopathy without distinct tear.
== END | disposition home or self-care (01) ==
LOC: RADMRIMAIN 07:35
PROVIDERS: ATTEND Orthopaedic Surgery
DX: M75.111 Incomplete rotator cuff tear or rupture of right shoulder, not specified as traumatic (principal); S46.111A Strain of muscle, fascia and tendon of long head of biceps, right arm, initial encounter; M25.411 Effusion, right shoulder; M60.811 Other myositis, right shoulder; S43.401A Unspecified sprain of right shoulder joint, initial encounter; S46.911A Strain of unspecified muscle, fascia and tendon at shoulder and upper arm level, right arm, initial encounter; M67.813 Other specified disorders of tendon, right shoulder

== ENCOUNTER → 2018-06-15 | Outpatient (CLI) | payer MEDICAID ==
[2018-06-15 07:03] LABS: HCT 43.9 % (39.0-53.0); HGB 14.6 gm/dL (13.0-17.5); MCH 29.9 pg (25.0-35.0); MCHC 33.3 g/dL (31.0-37.0); MCV 89.9 fL (80.0-100.0); Platelet Count 245 k/uL (150-450); RBC 4.88 m/uL (4.30-5.90); WBC 7.3 k/uL (3.8-10.6)
[2018-06-15 07:13] LABS: Appearance,Urine Cloudy (Clear); Bacteria,Urine Rare /hpf; Bilirubin,Urine Negative (Negative); Blood,Urine Negative (Negative); Color,Urine Yellow; Glucose,Urine (UA) Negative (Negative); Ketones,Urine Negative (Negative); Leukocyte Esterase,Urine Negative (Negative); Mucus,Urine Few /hpf; Nitrite,Urine Negative (Negative); PH, Urine 5.5 (5.0-8.0); Protein,Urine Trace (Negative); Specific Gravity,Urine 1.024 (1.001-1.035); Urobilinogen,Urine <2.0 mg/dL (<2.0); WBC,Urine 1 /hpf (0-5)
[2018-06-15 07:22] LABS: ALT 25 U/L (21-72); AST 20 U/L (17-59); Albumin 4.3 g/dL (3.5-5.0); Alkaline Phosphatase 61 U/L (38-126); Anion Gap 7 mmol/L; Blood Urea Nitrogen 17 mg/dL (9-20); Carbon Dioxide 30 mmol/L (22-30); Chloride 103 mmol/L (98-107); Cholesterol 136 mg/dL (<200); Glucose 104 mg/dL (74-99); HDL Cholesterol 35 mg/dL (40-60); LDL Cholesterol,Calculated 80 mg/dL (0-99); Potassium 4.8 mmol/L (3.5-5.1); Sodium 140 mmol/L (137-145); Total Protein 7.3 g/dL (6.3-8.2); Triglycerides 103 mg/dL (<150)
== END | disposition home or self-care (01) ==
LOC: LABWHC1 06:34
PROVIDERS: ATTEND Internal Medicine
DX: I10 Essential (primary) hypertension (principal); E78.5 Hyperlipidemia, unspecified
CPT/HCPCS: 36415; 80053; 80061; 81001; 85027

== ENCOUNTER → 2018-07-07 | Outpatient (CLI) | payer MEDICAID ==
[2018-07-07 06:56] LABS: HCT 43.8 % (39.0-53.0); HGB 14.8 gm/dL (13.0-17.5); MCH 30.8 pg (25.0-35.0); MCHC 33.8 g/dL (31.0-37.0); MCV 91.1 fL (80.0-100.0); Mean Platelet Volume 6.9; Platelet Count 220 k/uL (150-450); RBC 4.81 m/uL (4.30-5.90); RDW 12.9 % (11.5-15.5); WBC 7.9 k/uL (3.8-10.6)
[2018-07-07 07:24] LABS: Anion Gap 6 mmol/L; Blood Urea Nitrogen 19 mg/dL (9-20); Calcium 9.9 mg/dL (8.4-10.2); Carbon Dioxide 29 mmol/L (22-30); Chloride 107 mmol/L (98-107); Glucose 102 mg/dL (74-99); Sodium 142 mmol/L (137-145)
== END | disposition home or self-care (01) ==
LOC: LABWHC1 06:33
PROVIDERS: ATTEND Internal Medicine
DX: I10 Essential (primary) hypertension (principal)
CPT/HCPCS: 36415; 80048; 85027

== ENCOUNTER 2018-07-13 07:47 | Day surgery (SDC) | payer MEDICAID ==
[2018-07-08 10:33] VITALS: BMI 32.1
--- NOTE | 2018-07-12 11:18 | HP ---
HISTORY AND PHYSICAL REASON FOR ADMISSION: Surgery scheduled for 07/13/2018. HISTORY OF PRESENT ILLNESS: Medhat Weiss is a 57-year-old patient seen with progressive right shoulder pain. Treatment options were discussed. The patient elected to proceed with right shoulder arthroscopy. Consent regarding procedure was obtained. PAST MEDICAL HISTORY: Hypertension, hypothyroidism, hyperlipidemia. PAST SURGICAL HISTORY: Right total knee arthroplasty, tonsillectomy. MEDICATIONS: Losartan, Naprosyn, simvastatin, spironolactone, Synthroid, tramadol. ALLERGIES: AMOXICILLIN. SOCIAL HISTORY: Patient denies tobacco use. PHYSICAL EXAMINATION: Evaluation of the right shoulder flexion 100 degrees, abduction 90 degrees, external rotation is 20 degrees with weakness, tenderness along the anterior rotator cuff and anterior lateral acromion rotator cuff insertion. Impingement positive at 80 degrees. Drop-arm sign is positive. Distal neurovascular exam is intact. RADIOGRAPHS: Right shoulder radiographs revealed a type 2 anterior acromion, acromioclavicular joint osteoarthritis and cystic changes of the tuberosity. MRI of the right shoulder revealed a retracted rotator cuff tear, partial biceps tendon tear and labral tear. IMPRESSION: 1. Right shoulder impingement with rotator cuff tear and labral tear. 2. Right shoulder acromioclavicular joint osteoarthritis. PLAN: Right shoulder arthroscopy with subacromial decompression, possible arthroscopic rotator cuff repair, possible biceps tenotomy, probable Lucrecia procedure and debridement. Surgery 07/13/2018. MMODL / IJN: [id number] /
[~2018-07-13 07:47] MED LIST changes: -ACETAMINOPHEN TAB 500 MG TAB PO ONE; -CLINDAMYCIN 900 MG in DEXTROSE 5% IN WATER 50 ML IVPB ONE; +HYDROmorphone 0.5 MG/0.5 ML SYRINGE IVP PRN; -HYDROmorphone 1 MG/ML 1 ML SYRINGE IVP PRN; +LACTATED RINGERS 1,000 ML IV SCH; -LIDOCAINE 1% 20 ML VIAL (10MG/ML) FOR IV START INTRADERMA PRN; -MELOXICAM 7.5 MG TAB PO ONE; -SCOPOLAMINE 1.5MG/72HR PATCH TRANSDERM ONE; -TRANEXAMIC ACID 1,000 MG in SODIUM CHLORIDE 0.9% 100 ML IVPB ONE; +ceFAZolin IN SWFI 2 GM/20 ML SYRINGE IVP ONE; -fentaNYL (PF) 50 MCG/ML 20 ML VIAL IVP PRN
[2018-07-13] MEDS ORDERED: LIDOCAINE 1% 20 ML VIAL (10MG/ML) FOR IV START INTRADERMA ONE (08:25)
[2018-07-13] MEDS ORDERED: SUCCINYLCHOLINE CHLORIDE 100 MG/5 ML SYR IV ONE (09:11)
[2018-07-13] MEDS ORDERED: ROCURONIUM BROMIDE 10 MG/ML 10 ML VIAL IV ONE (09:11)
[2018-07-13] MEDS ORDERED: ROPIVACAINE 5 MG/ML 30 ML VIAL ONE (09:11)
[2018-07-13] MEDS ORDERED: LIDOCAINE 1% INJ 10MG/ML (20 ML MDV) ONE (09:11)
[2018-07-13] MEDS ORDERED: ePHEDrine SULFATE/0.9% NACL/PF 50 MG/5 ML SYRINGE IV ONE (09:11)
[2018-07-13] MEDS ORDERED: MIDAZOLAM 2 MG/2 ML VIAL ONE (09:11)
[2018-07-13] MEDS ORDERED: fentaNYL (PF) 50 MCG/ML 2 ML AMP ONE (09:11)
--- NOTE | 2018-07-13 10:00 | P.ONQ ---
Anesthesiology Proc Note - PNB - Peripheral Nerve Block Performed Right Interscalene Single Time Out Performed: Yes Procedure Start Time: 08:51 Procedure Stop Time: :55 Indication: Acute Post-Operative Pain, Requested by physician Sedation Type: Sedate with meaningful contact maintained Preparation: Sterile Prep Position: Supine Needle Size: 50mm (2") Needle Gauge: 21 Technique: Ultrasound Injectate: 0.5% Ropivacaine (see comment for volume) (ropi .5% 30cc) Blood Aspirated: No Pain Paresthesia on Injection Noted: No Resistance on Injection: Normal Events: Uneventful and Well Tolerated
[2018-07-13] MEDS ORDERED: LACTATED RINGERS 1,000 ML IV ONE (10:30)
--- NOTE | 2018-07-13 10:51 | P.OP ---
Date of Procedure: 07/13/18 Preoperative Diagnosis: Right shoulder impingement Postoperative Diagnosis: 1. Right shoulder rotator cuff tear 2. Right shoulder impingement 3. Right shoulder acromioclavicular joint osteoarthritis 4. Right shoulder superior labral tear Procedure(s) Performed: 1. Right shoulder arthroscopic rotator cuff repair 2. Right shoulder arthroscopic subacromial decompression 3. Right shoulder arthroscopic Lucrecia procedure 4. Right shoulder arthroscopic debridement labral tear Implants: 14.75 Arthrex swivel lock anchor Anesthesia: GETA, regional (Interscalene block) Surgeon: Manohar Moeller Manager Facility #1: [facility] Navarro Estimated Blood Loss (ml): 10 Pathology: none sent Condition: stable Disposition: PACU Indications for Procedure: 57-year-old patient seen with progressive right shoulder pain. After having treatment options discussed, he elected to proceed with arthroscopy. Operative Findings: see description of procedure Description of Procedure: Patient underwent an interscalene block by department of anesthesia. The patient was then taken to the operative suite. The patient underwent a general anesthetic by the department of anesthesia. The patient was placed into a lateral position and secured. There was appropriate padding of the bony prominence. Right shoulder was then prepped and draped in normal sterile orthopedic fashion. We placed the extremity in 10 pounds of longitudinal traction. A posterior incision was now made for a posterior working portal site. The trocar and cannula were inserted into the glenohumeral joint. Arthroscopy was initiated. Spinal needle was now inserted anteriorly, to ascertain the anterior working portal site. An incision was now made in that area, a trocar was inserted followed by a probe. There was a superior labral tear present. The biceps tendon was absent. Mild grade 1 chondromalacia changes of glenohumeral joint. The remaining labrum appeared stable. There was an obvious full-thickness rotator cuff tear that was visualized from glenohumeral side. I debrided the superficial labral tear down to stable tissue. The residual labrum was stable. Instruments were now removed from glenohumeral joint. Utilizing the posterior working portal site, the trocar and cannula were inserted into the subacromial space. Arthroscopy initiated. I made an incision 2 fingerbreadths lateral to the acromion. I introduced my trocar followed by my ArthroCare ablator. I now began ablating thick subacromial bursal tissue, which exposed the undersurface of the anterior acromion. There was diminished subacromial space. There was a very prominent anterior acromion. A motorized bur was introduced and a subacromial decompression was performed. I also excised some osteophytes off the inferior aspect of the distal clavicle. The AC joint was visualized and noted to be fairly arthritic. The motorized bur was introduced in the anterior portal site and a Lucrecia procedure was performed without difficulty, decompressing the AC joint nicely. I turned my attention to the rotator cuff. There was a 1.5 cm tear along the anterior aspect distal supraspinatus. I debrided the margins getting down to stable tendon tissue. I abraded the footprint with a motorized bur. I now with the assistance of John COLIN past 3 everted mattress sutures all through good bites of rotator cuff tendon. I now with the assistance of John COLIN punch the anchor site. We now passed all sutures through the eyelet and introduced the anchors into a pre-punch hole. I held the anchor in position while John COLIN tensioned all of our sutures. Once appropriate tensioning was performed John COLIN reduced anchor was held in appropriate position. All residual suture limbs were now clipped. We had good compression of the tendon along the entire footprint. I injected 1 mL Renue intra-articular. Instruments now removed from the portal sites. All portal sites were approximated with nylon suture. Sterile dressings were applied followed by a shoulder immobilizer. Eliud COLIN assisted in this complex case. The patient was awakened, transferred to a bed, and taken to recovery in stable condition.
[2018-07-13 10:52] VITALS: TEMP 98
[2018-07-13 12:23] VITALS: PULSE 96
[2018-07-13 12:51] VITALS: BP 129/84; RESP 16
== END 2018-07-13 12:51 | disposition home or self-care (01) ==
LOC: OR 07:47
PROVIDERS: ATTEND Orthopaedic Surgery
DX: M75.121 Complete rotator cuff tear or rupture of right shoulder, not specified as traumatic (principal); M75.41 Impingement syndrome of right shoulder; S43.491A Other sprain of right shoulder joint, initial encounter; M94.211 Chondromalacia, right shoulder; M19.011 Primary osteoarthritis, right shoulder; E03.9 Hypothyroidism, unspecified; E78.5 Hyperlipidemia, unspecified; I10 Essential (primary) hypertension; Z96.651 Presence of right artificial knee joint; Z88.0 Allergy status to penicillin; Z79.899 Other long term (current) drug therapy
CPT/HCPCS: 29827; 29824; 29826; 29822; 64415; C1713 ×2; C1765; J2250; J1100; J2405; J2001; J3010; J2795; J0330; J0690

== ENCOUNTER → 2019-06-21 | Outpatient (CLI) | payer MEDICAID ==
[2019-06-21 11:40] LABS: African American GFR (CKD) 107.2 (60.0-200.0); Albumin 4.5 g/dL (3.80-4.90); Albumin/Globulin Ratio 1.8 (1.60-3.17); Anion Gap 7.9 mmol/L (4.00-12.00); BUN/Creat Ratio 26.67 Ratio (12.00-20.00); Calcium 10.2 mg/dL (8.7-10.3); Carbon Dioxide 26.1 mmol/L (21.6-31.8); Globulin 2.5 g/dL (1.6-3.3); Potassium 4.4 mmol/L (3.5-5.5)
[2019-06-21 12:11] LABS: T4, Free (Free Thyroxine) 0.8 ng/dL (0.80-1.80)
[2019-06-21 15:27] LABS: Hemoglobin A1C 5.9 % (4.0-6.0)
== END | disposition home or self-care (01) ==
LOC: LABWHC1 06:36
PROVIDERS: ATTEND Internal Medicine
DX: Z13.1 Encounter for screening for diabetes mellitus (principal); I10 Essential (primary) hypertension; E04.9 Nontoxic goiter, unspecified; Z12.5 Encounter for screening for malignant neoplasm of prostate
CPT/HCPCS: 84439; 80053; 84443; 83036; 36415; G0103

== ENCOUNTER 2020-05-01 16:07 | Emergency (ER) | payer MEDICAID ==
[2020-05-01 16:14] VITALS: BP 177/103; PULSE 95; RESP 18; TEMP 98
[2020-05-01] MEDS ORDERED: LIDOCAINE 1% INJ 10MG/ML (20 ML MDV) SQ ONE (16:44)
[2020-05-01] MEDS ORDERED: DIPH,PERTUS(ACELL)TETVAC-LF 0.5 ML VIAL IM ONE (16:44)
--- NOTE | 2020-05-01 16:47 | ED ---
Wound/Laceration HPI - General Chief Complaint: Wound/Laceration Stated Complaint: lt hand lac Time Seen by Provider: 05/01/20 16:23 Source: patient Mode of arrival: ambulatory Limitations: no limitations - History of Present Illness Initial Comments: Patient is 59-year-old male presenting to emergency Department with complaints of a laceration to his left fifth digit. Patient states he was using a two- handed Dany, cutting small limbs off a tree when the blade stuck and his hand went across the top of the saw. Patient denies being on blood thinners. He does not remember his last tetanus vaccine. Bleeding is controlled this time. He has no further complaints. - Related Data Home Medications Medication Instructions Recorded Confirmed Levothyroxine Sodium [Unithroid] 150 mcg PO DAILY 12/11/15 07/13/18 Losartan Potassium 100 mg PO DAILY 12/11/15 07/13/18 Simvastatin 10 mg PO HS 12/11/15 07/13/18 Spironolact/Hydrochlorothiazid 1 tab PO Q48H 12/11/15 07/13/18 [Aldactazide 25-25 MG] traMADol HCL/ACETAMINOPHEN 1 tab PO TID PRN 12/11/15 07/13/18 [Tramadol-Acetaminophn 37.5-325] Naproxen [Naprosyn] 375 mg PO Q12HR PRN 07/08/18 07/13/18 Previous Rx's Medication Instructions Recorded Hydrocodone/Acetaminophen [[place] 1 each PO Q6HR PRN #20 tab 07/13/18 5-325] Allergies Allergy/AdvReac Type Severity Reaction Status Date / Time amoxicillin Allergy FINGERTIPS Verified 05/01/20 16:12 RED AND NUMB Review of Systems ROS Statement: Those systems with pertinent positive or pertinent negative responses have been documented in the HPI. ROS Other: All systems not noted in ROS Statement are negative. Past Medical History Past Medical History: GERD/Reflux, Hyperlipidemia, Hypertension, Osteoarthritis (OA), Thyroid Disorder History of Any Multi-Drug Resistant Organisms: None Reported Past Surgical History: Orthopedic Surgery, Tonsillectomy Additional Past Surgical History / Comment(s): RT KNEE X 3, --16 TOTAL RT KNEE Past Anesthesia/Blood Transfusion Reactions: No Reported Reaction Past Psychological History: No Psychological Hx Reported Smoking Status: Never smoker - Past Family History Mother Family Medical History: No Reported History General Exam - General Exam Comments Initial Comments: GENERAL: Well-appearing, well-nourished and in no acute distress. HEAD: Atraumatic, normocephalic. EYES: Pupils equal round and reactive to light, extraocular movements intact, sclera anicteric, conjunctiva are normal. ENT: Nares patent, oropharynx clear without exudates. Moist mucous membranes. NECK: Normal range of motion, supple without lymphadenopathy or JVD. LUNGS: Breath sounds clear to auscultation bilaterally and equal. No wheezes rales or rhonchi. HEART: Regular rate and rhythm without murmurs, rubs or gallops. ABDOMEN: Soft, nontender, normoactive bowel sounds. No guarding, no rebound. No masses appreciated. : Deferred EXTREMITIES: Patient has full range of motion of the left hand and fingers. Sensation is intact. Neurovascular intact as well. No pitting or edema. No clubbing or cyanosis. NEUROLOGICAL: Normal speech, normal gait. PSYCH: Normal mood, normal affect. SKIN: Warm, Dry, normal turgor, no rashes. Patient has a 1 cm laceration to the outside of the left fifth digit near the MCP joint. Limitations: no limitations Course Vital Signs 05/01/20 16:12 Temperature 98 F Pulse Rate 95 Respiratory 18 Rate Blood Pressure 177/103 O2 Sat by Pulse 95 Oximetry Procedures - Laceration Laceration #1 Consent Obtained: verbal consent Indication: laceration Site: hand (Left fifth digit) Size (cm): 1 Description: linear Depth: simple, single layer Anesthetic Used: lidocaine 1% Anesthesia Technique: local infiltration Amount (mls): 3 Pre-repair: irrigated extensively Type of Sutures: nylon Size of Sutures: 5-0 Number of Sutures: 5 Technique: simple, interrupted Patient Tolerated Procedure: well Medical Decision Making - Medical Decision Making Patient is a 59-year-old male here with a 1 cm laceration to the outside aspect of the left fifth digit, near MCP joint. Bleeding is controlled. Patient is non-thinners. Tetanus shot was updated today. Wound was cleaned, closed with 5, 5-0 sutures. Patient tolerated procedure well. He will keep wound clean and dry. He is stable for discharge. Sutures will be removed in 7-10 days. He is in agreement with this plan of care. Return parameters were discussed with the patient and he verbalized understanding. Case discussed with Heidi Mcdonald. Disposition Clinical Impression: Laceration of left hand Disposition: HOME SELF-CARE Condition: Stable Instructions (If sedation given, give patient instructions): Care For Your Stitches (ED) Additional Instructions: Please return to the Emergency Department if symptoms worsen or any other concerns. Keep wound clean and dry. Cover while working. Apply topical antibiotic once a day. Stitches need to be removed in 7-10 days. Is patient prescribed a controlled substance at d/c from ED?: No Referrals: Leo Aviles MD [Primary Care Provider] - 1-2 days
== END 2020-05-01 17:55 | disposition home or self-care (01) ==
LOC: EC 16:07
DX: S61.217A Laceration without foreign body of left little finger without damage to nail, initial encounter (principal); Z23 Encounter for immunization; I10 Essential (primary) hypertension; E78.5 Hyperlipidemia, unspecified; E07.9 Disorder of thyroid, unspecified; Z79.890 Hormone replacement therapy; Z79.899 Other long term (current) drug therapy; Z88.0 Allergy status to penicillin; W31.2XXA Contact with powered woodworking and forming machines, initial encounter
CPT/HCPCS: 90715; 99282; 12001; 90471; J2001

== ENCOUNTER → 2020-06-22 | Outpatient (CLI) | payer MEDICAID ==
[2020-06-22 11:59] LABS: HCT 45.3 % (39.0-53.0); MCH 30.5 pg (25.0-35.0); MCHC 33.2 g/dL (31.0-37.0); MCV 91.9 fL (80.0-100.0); Mean Platelet Volume 7.7; Platelet Count 243 k/uL (150-450); RBC 4.93 m/uL (4.30-5.90); WBC 9.6 k/uL (3.8-10.6)
[2020-06-22 17:05] LABS: African American GFR (CKD) 111.7 (60.0-200.0); Albumin 4.4 g/dL (3.80-4.90); Albumin/Globulin Ratio 1.63 (1.60-3.17); Anion Gap 6.5 mmol/L (4.00-12.00); BUN/Creat Ratio 23.75 Ratio (12.00-20.00); Calcium 9.9 mg/dL (8.7-10.3); Carbon Dioxide 26.5 mmol/L (21.6-31.8); Chol/HDL Ratio 4.55; Globulin 2.7 g/dL (1.6-3.3); LDL Cholesterol,Calculated 88.6 mg/dL (0.0-131.0); Non-African American GFR(CKD) 96.4 (60.0-200.0); Potassium 4.2 mmol/L (3.5-5.5); Total Protein 7.1 g/dL (6.2-8.2); VLDL Calculation 21.4 mg/dL (5.00-40.00)
== END | disposition home or self-care (01) ==
LOC: LABWHC1 11:15
PROVIDERS: ATTEND Internal Medicine
DX: I10 Essential (primary) hypertension (principal); E78.5 Hyperlipidemia, unspecified; Z12.5 Encounter for screening for malignant neoplasm of prostate
CPT/HCPCS: 80061; 80053; 85027; 36415; G0103

== ENCOUNTER → 2020-08-03 | Outpatient (CLI) | payer MEDICAID ==
--- NOTE | 2020-08-03 17:10 | CONS ---
CONSULTATION DATE OF SERVICE: 08/03/2020 This patient is a 59-year-old gentleman who has been evaluated in Sleep Center for possible obstructive sleep apnea-hypopnea syndrome. HISTORY OF PRESENT ILLNESS/SLEEP-WAKE EVALUATION: Patient's usual sleep schedule on weekdays is from 9 p.m. to 3:45 a.m. and on weekends from 10 p.m. to 8 or 8:30 a.m. He does have problems with falling asleep. He has a TV set in the bedroom. He sleeps on the side position. According to his , he snores and has witnessed episodes of stopped breathing during sleep. Positive history of restless leg symptoms and sweating. The patient wakes up from sleep 3 times with one episode of nocturia. In the morning the patient wakes up tired, worries about his sleep and has episodes of irritability. [place] Sleepiness Scale is 8. He may take one nap around 4:30 p.m. He feels refreshed after a nap. No history of vivid dreams during naps. He drinks up to 10 caffeinated beverages during the day. PAST MEDICAL HISTORY: Positive for hypertension, hypothyroidism, hyperlipidemia, acid reflux. PAST SURGICAL HISTORY: Right shoulder surgery, bilateral knee replacement. MEDICATIONS: Naproxen, simvastatin, losartan, levothyroxine, spironolactone, ibuprofen. SOCIAL HISTORY: Negative for smoking or using alcohol. FAMILY HISTORY: Heart problems, diabetes. PHYSICAL EXAMINATION: GENERAL: A pleasant gentleman without distress. VITAL SIGNS: BP 159/78, HR 86, RR 15, height 5 feet 10-1/2 inches, weight 264 pounds. Body mass index 37.3. Temperature 98.1, oxygen saturation at room air 96%. HEENT: PERRLA, EOMI. Evaluation of oropharynx showed tongue protrudes midline. Extremely low position of soft palate. Mallampati IV. NECK: Supple. No JVD. Thyroid is not palpable. Wide neck; 18-1/2 inches in circumference. LUNGS: Clear to percussion and to auscultation. Good air exchange. No wheezing or rhonchi. HEART: S1, S2 regular. No murmurs, gallops or rubs. ABDOMEN: Obese. EXTREMITIES: One plus ankle edema. JOURNEYMAN TOOL AND DIE MAKER: Awake, alert, and oriented X3. Cranial nerves 2 to 7 intact. There is no fasciculation or atrophy. noted. No focal deficits observed. IMPRESSION: 1. Snoring, witnessed episodes of stopped breathing during sleep, multiple awakenings from sleep, low position of soft palate, wide neck 18-1/2 inches in circumference; obstructive sleep apnea-hypopnea syndrome. 2. Obesity. BMI 37.3. 3. Symptoms of restless legs while falling asleep, possibly periodic limb movements during sleep. 4. Hypertension. 5. Hypothyroidism. 6. Hyperlipidemia. 7. Acid reflux. 8. Status post right shoulder surgery. 9. Status post bilateral knee replacement. PLAN: 1. Polysomnography for evaluation of patient's breathing during sleep. 2. CPAP/BiPAP titration if sleep study confirms obstructive sleep apnea-hypopnea syndrome. 3. Preferable position during sleep on the side. 4. No driving if patient feels any sleepiness. 5. I will see patient for follow up visit to explain results of testing and following plan. Thank you very much for referring this patient for consultation. Sincerely, Charlie Soares MD, PhD, FAASM Diplomat of [employer] [employer] [employer] Baling Press Operator of [facility] [place] MMODL / IJN: [id number] /
== END | disposition home or self-care (01) ==
LOC: SLEEP 15:08
PROVIDERS: ATTEND Internal Medicine
DX: G47.33 Obstructive sleep apnea (adult) (pediatric) (principal); E66.9 Obesity, unspecified; Z68.37 Body mass index [BMI] 37.0-37.9, adult; I10 Essential (primary) hypertension; E03.9 Hypothyroidism, unspecified; E78.5 Hyperlipidemia, unspecified; K21.9 Gastro-esophageal reflux disease without esophagitis; Z96.653 Presence of artificial knee joint, bilateral; Z79.891 Long term (current) use of opiate analgesic; Z79.890 Hormone replacement therapy; Z79.899 Other long term (current) drug therapy
CPT/HCPCS: 99211

== ENCOUNTER → 2020-10-25 | Outpatient (CLI) | payer MEDICAID ==
--- NOTE | 2020-10-26 02:22 | SFUN ---
SLEEP CENTER FOLLOW UP NOTE DATE OF SERVICE: 10/25/2020 This 60-year-old gentleman has been followed in Sleep Center to discuss results of sleep study and following plan. I discussed results of sleep study with patient in details. He has extremely severe obstructive sleep apnea-hypopnea syndrome with apnea-hypopnea index 52.5, in REM sleep 81.2 with oxygen desaturation to extremely low of 67.3%. Total oxygen level during the night was below normal for 46.1 minutes. Subsequently, patient needs to have CPAP titration and treatment for obstructive sleep apnea-hypopnea syndrome. I discussed complications of untreated obstructive sleep apnea with patient in details and other options for treatment of obstructive sleep apnea, except positive airway pressure. [place] Sleepiness Scale . MEDICATIONS: Naproxen, simvastatin, losartan, levothyroxine, spironolactone, ibuprofen. PHYSICAL EXAMINATION: GENERAL: Patient in no distress. VITAL SIGNS: BP 138/88, HR 82, RR 18, height 5 feet 10 inches, weight 260, BMI 37.3, temperature 96.9, oxygen saturation at room air 95%. HEENT: PERRLA, EOMI. Oropharynx extremely low position of soft palate, Mallampati 4. NECK: Supple, no JVD. Thyroid is not palpable. LUNGS: Clear to percussion and to auscultation. Good air exchange. No wheezing or rhonchi. HEART: S1, S2 regular. No murmurs, gallops, or rubs. ABDOMEN: Soft and nontender. Bowel sounds are present. No organomegaly appreciated. EXTREMITIES: No clubbing or cyanosis. CHAIR CAR ATTENDANT: Awake, alert, and oriented X3. Cranial nerves 2 to 7 intact. There is no fasciculation or atrophy. noted. No focal deficits observed. IMPRESSION: 1. Severe obstructive sleep apnea-hypopnea syndrome with severe oxygen desaturation. 2. Obesity. 3. Hypertension. 4. Hypothyroidism. 5. Hyperlipidemia. 6. Acid reflux. 7. Status post right shoulder surgery. 8. Status post bilateral knee replacement. PLAN: 1. CPAP titration for evaluation of effective pressure for correction of respiratory abnormalities during sleep and to check for fitting proper mask. 2. Losing weight. 3. Sleep hygiene with regular time in bed for at least 7-1/2 to 8 hours. 4. No driving if feeling sleepiness. Thank you very much for allowing me to participate in management of your patient. Sincerely, Charlie Soares MD, PhD, FAASM Diplomat of [place] [employer] [employer] Finance Clerk of [facility] [place] MMROMULO / ALEENA: [id number] /
== END | disposition home or self-care (01) ==
LOC: SLEEP 13:26
PROVIDERS: ATTEND Internal Medicine
DX: G47.33 Obstructive sleep apnea (adult) (pediatric) (principal); I10 Essential (primary) hypertension; E03.9 Hypothyroidism, unspecified; E78.5 Hyperlipidemia, unspecified; E66.9 Obesity, unspecified; K21.9 Gastro-esophageal reflux disease without esophagitis; Z98.890 Other specified postprocedural states; Z96.653 Presence of artificial knee joint, bilateral; Z99.89 Dependence on other enabling machines and devices

== ENCOUNTER → 2020-11-06 | Day surgery (SDC) | payer MEDICAID ==
[2020-11-02 09:11] VITALS: BMI 35.9
[~2020-11-06] MED LIST changes: +BUPIVACAINE (PF) 0.5% 30 ML VIAL SQ ONE; -DEXAMETHASONE SOD PHOSPHATE 10 MG/ML 1 ML VIAL IV ONE; +DEXAMETHASONE SOD PHOSPHATE 4 MG/ML 1 ML VIAL IV ONE; +KETAMINE 10 MG/ML 20 ML VIAL ONE; +LIDOCAINE 1% (10MG/ML) FOR IV START INTRADERMA PRN; +LIDOCAINE 1% INJ 10MG/ML (20 ML MDV) ONE; +LIDOCAINE 2% INJ 20 MG/ML SQ ONE; -MIDAZOLAM 2 MG/2 ML VIAL IV PRN; +MIDAZOLAM 2 MG/2 ML VIAL ONE; -ONDANSETRON 4 MG/2 ML VIAL IVP ONE; +PROPOFOL 10 MG/ML 20 ML VIAL IV ONE; +Pre Op ABX Message 1 EACH MISC MISCELLANE ONE; -ceFAZolin IN SWFI 2 GM/20 ML SYRINGE IVP ONE; +fentaNYL (PF) 50 MCG/ML 2 ML AMP ONE
[2020-11-06 11:49] VITALS: TEMP 98.3
[2020-11-06 13:33] VITALS: BP 138/88; PULSE 85; RESP 16
--- NOTE | 2020-11-08 00:28 | OP ---
OPERATIVE REPORT DATE OF SURGERY: 11/06/2020. PREOPERATIVE DIAGNOSIS: Right carpal tunnel syndrome. POSTOPERATIVE DIAGNOSIS: Right carpal tunnel syndrome. PROCEDURE: Open right carpal tunnel release. DESCRIPTION OF PROCEDURE: The patient was taken to the Operative Suite where a sedation was administered by the Department of Anesthesia. I then performed a local injection along the line of the incision with a combination of Marcaine and Xylocaine both without epinephrine. The hand was then prepped and draped in the usual manner. The arm was elevated, exsanguinated and the cuff was inflated to 250 mm of mercury. A longitudinal incision was made along the ring finger ray distal to the wrist crease. Dissection was taken through the skin and subcutaneous tissue, initially sharp through the skin and then blunt through the subcutaneous tissue to ensure protection of any potential terminal transverse branches of the palmar cutaneous nerve. The palmar fascia was then incised under direct vision longitudinally exposing the transverse carpal ligament. The transverse carpal ligament also was incised under direct vision. The dissection was then continued proximally beneath the skin under direct vision to release the distal forearm fascia. The median nerve was then reflected free of tenosynovium to ensure no adhesions. The tourniquet was then released. The wound was then irrigated and the skin was closed with a running 5-0 nylon suture. A soft bulky dressing was applied including a volar plaster splint holding the wrist in a neutral slightly extended position. The patient was then taken to the Recovery Room in satisfactory condition. MMODL / IJN: [id number] /
== END ==
LOC: OR 11:19
PROVIDERS: ATTEND Orthopaedic Surgery Hand Surgery
DX: G56.01 Carpal tunnel syndrome, right upper limb (principal); I10 Essential (primary) hypertension; E78.5 Hyperlipidemia, unspecified; E03.9 Hypothyroidism, unspecified; H91.90 Unspecified hearing loss, unspecified ear; M06.9 Rheumatoid arthritis, unspecified; G47.33 Obstructive sleep apnea (adult) (pediatric); M19.90 Unspecified osteoarthritis, unspecified site; K21.9 Gastro-esophageal reflux disease without esophagitis; Z88.0 Allergy status to penicillin; Z79.890 Hormone replacement therapy; Z79.899 Other long term (current) drug therapy; Z79.1 Long term (current) use of non-steroidal anti-inflammatories (NSAID); Z97.3 Presence of spectacles and contact lenses; Z90.89 Acquired absence of other organs; Z96.653 Presence of artificial knee joint, bilateral; Z83.3 Family history of diabetes mellitus; Z82.49 Family history of ischemic heart disease and other diseases of the circulatory system
CPT/HCPCS: 64721; J2001 ×2; J2250; J1100; J3010; J2704

== ENCOUNTER → 2021-01-11 | Outpatient (CLI) | payer MEDICAID ==
--- NOTE | 2021-01-11 18:48 | US ---
EXAMINATION TYPE: US thyroid st tissue head/neck DATE OF EXAM: 01/11/2021 COMPARISON: 05/24/2016 CLINICAL HISTORY: 60-year-old male E04.9 THYROID NODULE. TECHNIQUE: Multiple sonographic images of the thyroid gland are obtained. FINDINGS: GLAND SIZE: Right Lobe: 11.2 x 4.5 x 5.2 cm Overall Parenchyma: grossly heterogeneous Left Lobe: 9.3 x 3.5 x 4.1 cm Overall Parenchyma: grossly heterogeneous Isthmus Thickness: 1.1 cm NODULES RIGHT: # of nodules measured on right: 0 LEFT: # of nodules measured on left: 0 ISTHMUS: # of nodules measured in the isthmus: 0 Bilateral neck scanned, no evidence of lymphadenopathy. Latex Spooler notes: Highly vascular and enlarged gland. IMPRESSION: Severe thyromegaly with heterogeneity and hyperemia. Consider diffuse thyroiditis or goiter. Unable t o now identify any discrete nodules as compared to the prior 2015 exam. The gland is also overall sli ghtly larger in size.
== END | disposition home or self-care (01) ==
LOC: RADUSWWP 14:07
PROVIDERS: ATTEND Internal Medicine
DX: E01.0 Iodine-deficiency related diffuse (endemic) goiter (principal)
CPT/HCPCS: 76536

== ENCOUNTER 2021-01-12 12:44 | Day surgery (SDC) | payer MEDICAID ==
[2021-01-10 08:28] VITALS: BMI 34.4
[~2021-01-12 12:44] MED LIST changes: -BUPIVACAINE (PF) 0.5% 30 ML VIAL SQ ONE; -KETAMINE 10 MG/ML 20 ML VIAL ONE; -LIDOCAINE 1% (10MG/ML) FOR IV START INTRADERMA PRN; -LIDOCAINE 1% INJ 10MG/ML (20 ML MDV) ONE; -LIDOCAINE 2% INJ 20 MG/ML SQ ONE; +MIDAZOLAM 2 MG/2 ML VIAL IV PRN; -MIDAZOLAM 2 MG/2 ML VIAL ONE; +ONDANSETRON 4 MG/2 ML VIAL IVP ONE; -PROPOFOL 10 MG/ML 20 ML VIAL IV ONE; +SCOPOLAMINE 1.5MG/72HR PATCH TRANSDERM ONE; -fentaNYL (PF) 50 MCG/ML 2 ML AMP ONE
[2021-01-12] MEDS ORDERED: LIDOCAINE 1% (10MG/ML) FOR IV START INTRADERMA ONE (13:47)
[2021-01-12 13:55] VITALS: RESP 18; TEMP 98.6
[2021-01-12] MEDS ORDERED: fentaNYL (PF) 50 MCG/ML 2 ML AMP ONE (15:02)
[2021-01-12] MEDS ORDERED: MIDAZOLAM 2 MG/2 ML VIAL ONE (15:02)
[2021-01-12] MEDS ORDERED: PROPOFOL 10 MG/ML 20 ML VIAL IV ONE (15:02)
[2021-01-12] MEDS ORDERED: BUPIVACAINE (PF) 0.25% 30 ML VIAL SQ ONE (15:19)
[2021-01-12] MEDS ORDERED: LIDOCAINE 1% INJ 10MG/ML (20 ML MDV) SQ ONE (15:19)
[2021-01-12 15:59] VITALS: BP 130/86; PULSE 78
--- NOTE | 2021-01-12 16:56 | P.OP ---
Date of Procedure: 01/12/21 Procedure(s) Performed: PREOPERATIVE DIAGNOSES: 1. Left Hand carpal tunnel syndrome POSTOPERATIVE DIAGNOSES: 1. Left Hand carpal tunnel syndrome PROCEDURES PERFORMED: 1. Left Hand carpal tunnel release ANESTHESIA: Local with IV sedation POTATO CHIP SORTER: Swati Babb PA-C (assistance with: Patient positioning, retraction, exposure, closure, dressing) COMPLICATIONS: None ESTIMATED BLOOD LOSS: Less than 1 mL DISPOSITION: To post-anesthesia care unit INDICATIONS: Mrs. Murphy is a 60-year-old female who has had EMG/nerve conduction study confirmed carpal tunnel syndrome with unrelenting symptoms. She desires to have a carpal tunnel release as discussed in office. I discussed the steps of the surgery as well as potential risks and complications as being inclusive of, but not limited to: Bleeding, infection, scarring, discomfort, blood vessel and/or nerve damage, need for further surgery, stiffness, tendon injury, persistence or recurrence of symptoms and other risks. The patient is aware of these risks and wishes to proceed with surgery. The consent form has been signed. PROCEDURE: After appropriate consent was obtained, the patient was taken to the operating room placed in the supine position. Anesthesia was initiated, and after confirmation of adequate anesthesia, the patient was carefully positioned. Care was taken to make sure that all pressure points were adequately padded. Timeout was called, confirming patient identity, side, procedure, and no antib iotics were administered. Limb was exsanguinated with an Esmarch bandage and the tourniquet was inflated to 250 mmHg. Total tourniquet time for the case was approximately 9 minutes. Incision was created in line with the radial border of the fourth ray at the base of the palm. Incision was carried down through skin and then lightly spread down to palmar fascia. Retractors were placed. Excellent visualization of the palmar fascia was accomplished and the palmar fascia was incised to reveal the underlying transverse carpal ligament. The ligament was incised sharply using a knife and released in 1 mm increments both proximally and distally to the extent of the wound. Further fascial releases were performed in both directions using gentle push technique with curved small Metzenbaum scis sors. Full release was confirmed with visual inspection and instrument palpation. The underlying structures of the carpal tunnel were noted to be fairly normal without evidence of significant tenosynovitis. Thorough irrigation was performed using normal saline. Tourniquet was deflated and combination of bipolar electrocautery and pressure was used for hemostasis. Closure was performed using vertical mattress 4-0 nylon suture. Sterile dressing was applied and further pressure was held over the wound for 3 minutes for additional hemostasis. Vascular status remained good with less than 2 second capillary refill. Patient tolerated the procedure well and taken to recovery room in stable condition. Counts were correct.
== END 2021-01-12 16:20 | disposition home or self-care (01) ==
LOC: OR 12:44
PROVIDERS: ATTEND Orthopaedic Surgery
DX: G56.02 Carpal tunnel syndrome, left upper limb (principal); Z88.0 Allergy status to penicillin; I10 Essential (primary) hypertension; E78.5 Hyperlipidemia, unspecified; M19.90 Unspecified osteoarthritis, unspecified site; E03.9 Hypothyroidism, unspecified; M06.9 Rheumatoid arthritis, unspecified; H91.90 Unspecified hearing loss, unspecified ear; K21.9 Gastro-esophageal reflux disease without esophagitis; Z79.890 Hormone replacement therapy; Z79.1 Long term (current) use of non-steroidal anti-inflammatories (NSAID); Z79.899 Other long term (current) drug therapy; Z97.3 Presence of spectacles and contact lenses; Z96.653 Presence of artificial knee joint, bilateral; Z83.3 Family history of diabetes mellitus; Z82.49 Family history of ischemic heart disease and other diseases of the circulatory system; Z98.890 Other specified postprocedural states
CPT/HCPCS: 64721; J2250; J1100; J2405; J2001; J3010; J2704

== ENCOUNTER → 2021-01-17 | Outpatient (CLI) | payer MEDICAID ==
--- NOTE | 2021-01-17 20:00 | SFUN ---
SLEEP CENTER FOLLOW UP NOTE DATE OF SERVICE: 01/17/2021 This is a 60-year-old gentleman who has been followed in Sleep Center for treatment of obstructive sleep apnea-hypopnea syndrome. Recently the patient had a diagnostic polysomnogram which showed severe obstructive sleep apnea, and then he had a CPAP titration. Today is his first visit after he started to use his CPAP equipment. I discussed results of the sleep studies with the patient in detail, including numbers. The patient has some difficulties with using CPAP equipment, mostly related to humidity. In the beginning of the night there is condensation of water in the mask which possibly indicates that the amount of heating of humidifier is too high; and several hours after using the machine, there is no water in the humidifier, and then the patient starts experiencing dryness in the mouth. I checked his BiPAP unit. The pressure is 16/12. Usage is 30/30 nights for more than 4 hours with average usage 5.5 hours per night. Leak is 35.2 L/minute. Apnea-hypopnea index is only 2.9, which is totally normal. Humidity is at the level of 4. MEDICATIONS: 1. Simvastatin 10 mg once a day. 2. Naproxen 375 mg once a day. 3. Losartan 100 mg once a day. 4. Levothyroxine 150 mcg once a day. 5. Spironolactone with hydrochlorothiazide 25 mg once a day. PHYSICAL EXAMINATION: GENERAL: A pleasant patient in no distress. VITAL SIGNS: BP 145/81, HR 78, RR 18, height 5 feet 11-3/4 inches, weight 256.4, temperature 98.3, oxygen saturation at room air 95%. HEENT: PERRLA, EOMI. Evaluation of oropharynx showed tongue protrudes midline. Low position of soft palate. NECK: Supple. No JVD. Thyroid is not palpable. LUNGS: Clear to percussion and to auscultation. Good air exchange. No wheezing or rhonchi. HEART: S1, S2 regular. No murmurs, gallops or rubs. ABDOMEN: Obese. EXTREMITIES: No clubbing or cyanosis. PORTER BAGGAGE: Awake, alert, and oriented X3. Cranial nerves 2 to 7 intact. There is no fasciculation or atrophy. noted. No focal deficits observed. IMPRESSION: 1. Severe obstructive sleep apnea-hypopnea syndrome; apnea-hypopnea index 52.5 with severe oxygen desaturation to 67%. The patient demonstrated 100% compliance with treatment, benefitting from treatment. Totally normal apnea-hypopnea index reading from the machine. The patient is experiencing some difficulties with usage of the machine, most probably related to humidity level and mask fitting. 2. Obesity. BMI 35.7. 3. Hypertension. 4. Hypothyroidism. 5. Hyperlipidemia. 6. Acid reflux. 7. Status post right shoulder surgery. 8. Status post bilateral knee replacement. PLAN: 1. Humidity in the BiPAP unit was adjusted down to 2. 2. Patient will continue to use PAP equipment every night for the whole night. 3. Sleep hygiene with regular time in bed for at least 7-1/2 to 8 hours. 4. Precautions related to driving. No driving if feeling sleepiness. 5. I will maintain all necessary prescription for PAP supplies including mask, tube, filters. 6. Watching weight. 7. No driving if feeling sleepiness. 8. Follow-up visit in 2 months or earlier if patient has any problems. Thank you very much for allowing me to participate in the management of your patient. Sincerely, Charlie Soares MD, PhD, FAASM Diplomat of [place] [employer] [employer] Senior Policy Associate of [facility] [place] MMODL / IJN: [id number] /
== END | disposition home or self-care (01) ==
LOC: SLEEP 13:02
PROVIDERS: ATTEND Internal Medicine
DX: G47.33 Obstructive sleep apnea (adult) (pediatric) (principal); E66.9 Obesity, unspecified; I10 Essential (primary) hypertension; E03.9 Hypothyroidism, unspecified; E78.5 Hyperlipidemia, unspecified; K21.9 Gastro-esophageal reflux disease without esophagitis; Z98.890 Other specified postprocedural states; Z96.653 Presence of artificial knee joint, bilateral; Z68.35 Body mass index [BMI] 35.0-35.9, adult; Z99.89 Dependence on other enabling machines and devices; Z79.890 Hormone replacement therapy; Z79.899 Other long term (current) drug therapy

== ENCOUNTER → 2021-01-30 | Outpatient (CLI) | payer MEDICAID ==
--- NOTE | 2021-01-30 21:42 | CT ---
EXAMINATION TYPE: CT soft tissue neck w con DATE OF EXAM: 01/30/2021 HISTORY: f/u abnormal thyroid US COMPARISON: Thyroid ultrasound January 11, 2021. CT neck January 31, 2012 CT DLP: 754 mGycm. Automated Exposure Control for Dose Reduction was Utilized. TECHNIQUE: CT scan of the neck is performed with IV Contrast, patient injected with 100 mL of Isovue 300, axial images are obtained, coronal and sagittal reformatted images are reviewed. FINDINGS: Airway: Persistent heterogeneous enlarged thyroid not significantly changed in appearance from 2012 C T. Substernal right lobe extension redemonstrated. Parotid/submandibular glands: No gross abnormality seen. Carotid/Vascular Structures: New mild curvilinear calcification posteriorly left carotid bulb. Osseous Structures: Persistent grade 1 retrolisthesis C3 on C4 and C5 on C6 . More prominent mild to moderate disc space narrowing and spurring at these levels. Other: Parapharyngeal fat spaces are maintained. Scattered prominent but subcentimeter neck lymph nod es noted bilaterally. IMPRESSION: Stable heterogeneous enlarged thyroid consistent with goiter which correlates with recent ultrasound and 2012 CT.
== END ==
LOC: RADCTMAIN 16:45
PROVIDERS: ATTEND Surgery
DX: E04.9 Nontoxic goiter, unspecified (principal)
CPT/HCPCS: 70491; Q9967

== ENCOUNTER → 2021-02-13 | Outpatient (CLI) | payer MEDICAID ==
[2021-02-13 18:52] LABS: HCT 40.5 % (39.6-50.0); HGB 13.8 g/dL (13.0-17.0); MCH 29.5 pg (27.0-32.0); MCHC 34.1 g/dL (32.0-37.0); MCV 86.5 fL (80.0-97.0); Platelet Count 280 X 10*3/uL (140-440); RBC 4.68 X 10*6/uL (4.40-5.60); RDW 13.6 % (11.5-14.5); WBC 8.62 X 10*3/uL (4.50-10.00)
[2021-02-13 21:00] LABS: African American GFR (CKD) 105.7 (60.0-200.0); Anion Gap 9.7 mmol/L (4.00-12.00); BUN/Creat Ratio 15.56 Ratio (12.00-20.00); Calcium 10.2 mg/dL (8.7-10.3); Carbon Dioxide 25.3 mmol/L (21.6-31.8); Non-African American GFR(CKD) 91.2 (60.0-200.0)
[2021-02-14 01:28] LABS: Partial Thromboplastin Time 26.5 sec (23.5-31.0); Prothrombin Time 10.9 sec (9.9-11.9)
== END | disposition home or self-care (01) ==
LOC: LABWHC1 14:13
PROVIDERS: ATTEND Internal Medicine
DX: E04.9 Nontoxic goiter, unspecified (principal); I10 Essential (primary) hypertension
CPT/HCPCS: 36415; 80048; 85027; 85610; 85730

== ENCOUNTER → 2021-03-01 | Outpatient (CLI) | payer MEDICAID ==
[2021-03-01 22:07] LABS: T4, Free (Free Thyroxine) 1.2 ng/dL (0.80-1.80)
== END | disposition home or self-care (01) ==
LOC: LABWHC1 13:27
PROVIDERS: ATTEND Internal Medicine
DX: E03.9 Hypothyroidism, unspecified (principal)
CPT/HCPCS: 36415; 84439; 84443; 84481

== ENCOUNTER 2022-05-20 12:08 | Emergency (ER) | payer MEDICAID ==
[2022-05-20 12:16] VITALS: TEMP 97.7
[2022-05-20] MEDS ORDERED: LIDOCAINE 1%-EPI 1:100,000 20 ML VIAL SQ STA (13:49)
[2022-05-20] MEDS ORDERED: TRANEXAMIC ACID 1,000 MG/10 ML VIAL MISCELLANE ONE (13:49)
--- NOTE | 2022-05-20 14:19 | ED ---
GI Bleed HPI - General Chief complaint: GI Bleed Stated complaint: rectal bleeding Time Seen by Provider: 05/20/22 13:45 Source: patient Mode of arrival: ambulatory Limitations: no limitations - History of Present Illness Initial comments: 61-year-old male presents to the emergency department with rectal pain. States that a week ago the patient had constipation with 2 bowel movements that were very hard in consistency. He then felt a bulge from his rectal region. Patient assumed that he had a hemorrhoid and without any significant pain he decided not to seek treatment. This morning the patient awoke and noted that he had saturated his underwear. He reports to having slow rectal bleeding since 4 AM this morning. He is not on any blood thinners. Had a colonoscopy 3 years ago which was normal. He denies any anterior abdominal pain. No fevers. No dizziness or lightheadedness. No other alleviating, precipitating or modifying factors - Related Data Home Medications Medication Instructions Recorded Confirmed Levothyroxine Sodium [Unithroid] 150 mcg PO MOTUWETHFRSA 12/11/15 05/20/22 Losartan Potassium 100 mg PO DAILY 12/11/15 05/20/22 Simvastatin 10 mg PO HS 12/11/15 05/20/22 Spironolact/Hydrochlorothiazid 1 tab PO Q48H 12/11/15 05/20/22 [Aldactazide 25-25 MG] Naproxen [Naprosyn] 375 mg PO HS 07/08/18 05/20/22 Levothyroxine Sodium [Unithroid] 225 mcg PO FONTENOT 05/20/22 05/20/22 Previous Rx's Medication Instructions Recorded Hydrocortisone [Anusol-Hc] 1 applic RECTAL TID #60 gm 05/20/22 Allergies Allergy/AdvReac Type Severity Reaction Status Date / Time amoxicillin Allergy FINGERTIPS Verified 05/20/22 13:59 RED AND NUMB Review of Systems ROS Statement: Those systems with pertinent positive or pertinent negative responses have been documented in the HPI. ROS Other: All systems not noted in ROS Statement are negative. Past Medical History Past Medical History: GERD/Reflux, Hyperlipidemia, Hypertension, Osteoarthritis (OA), Thyroid Disorder History of Any Multi-Drug Resistant Organisms: None Reported Past Surgical History: Orthopedic Surgery, Tonsillectomy Additional Past Surgical History / Comment(s): RT KNEE X 3, 10-08- TOTAL RT KNEE Past Anesthesia/Blood Transfusion Reactions: No Reported Reaction Past Psychological History: No Psychological Hx Reported Smoking Status: Never smoker Past Alcohol Use History: None Reported Past Drug Use History: None Reported - Past Family History Mother Family Medical History: No Reported History General Exam Limitations: no limitations GI/Abdominal exam: Present: soft, normal bowel sounds. Absent: distended, te nderness, guarding, rebound, rigid Rectal exam: Present: hemorrhoids (non thrombosed. small laceration in hemorrhoid surface with slow ooze measuring 5 mm) Course Vital Signs 05/20/22 05/20/22 12:13 14:35 Temperature 97.7 F Pulse Rate 75 76 Respiratory 16 15 Rate Blood Pressure 185/109 137/89 O2 Sat by Pulse 95 96 Oximetry Medical Decision Making - Medical Decision Making Upon arrival patient is placed into room 2. Thorough history and physical exam was performed. Physical exam does demonstrate an external hemorrhoid which does have a small skin tear over the top of it which is actively oozing. I did use lidocaine with epinephrine ( 2cc) to anesthetize the site in order to control the bleeding. I then used topical TXA on a gauze which was placed on the hemorrhoid it for 10 minutes. Patient does have considerable slowing of the bleeding. Patient will be discharged home at this time and is instructed to follow-up with his primary care doctor in 2-4 days. Recommended sitz bath, Anusol cream and stool softener. Patient reports that his bowel movement this morning was loose. Recommended MiraLAX if he has any reoccurrence of his constipation. Patient understood. Asked to return for any new or worsening symptoms. Patient discharged home in stable condition Disposition Clinical Impression: Bleeding hemorrhoid Disposition: HOME SELF-CARE Condition: Stable Instructions (If sedation given, give patient instructions): Hemorrhoids (ED), Sitz Bath (DC) Additional Instructions: Please use the cream 3 times daily. Take MiraLAX if you began having firm stools. Follow-up with your doctor in 2-4 days and return for any new or worsening symptoms Prescriptions: Hydrocortisone [Anusol-Hc] 1 applic RECTAL TID #60 gm Is patient prescribed a controlled substance at d/c from ED?: No Referrals: Abbe Skelton MD [Primary Care Provider] - 1-2 days Time of Disposition: 14:26
[2022-05-20 14:36] VITALS: BP 137/89; PULSE 76; RESP 15
== END 2022-05-20 14:36 | disposition home or self-care (01) ==
LOC: EC 12:08
DX: K64.9 Unspecified hemorrhoids (principal); E07.9 Disorder of thyroid, unspecified; E78.5 Hyperlipidemia, unspecified; I10 Essential (primary) hypertension; Z79.899 Other long term (current) drug therapy; Z88.0 Allergy status to penicillin
CPT/HCPCS: 99284

== ENCOUNTER → 2022-09-09 | Outpatient (CLI) | payer MEDICAID ==
[2022-09-09 11:52] LABS: African American GFR (CKD) 100.5 (60.0-200.0); BUN/Creat Ratio 17.35 Ratio (12.00-20.00); Blood Urea Nitrogen 16.1 mg/dL (9.0-27.0); Carbon Dioxide 27.7 mmol/L (20.0-27.5); Chloride 103 mmol/L (96-109); Chol/HDL Ratio 4.22 Ratio; Glucose 128 mg/dL (70-110); LDL Cholesterol,Calculated 111.6 mg/dL (0.0-131.0); Non-African American GFR(CKD) 86.7 (60.0-200.0); Potassium 4.2 mmol/L (3.5-5.5); Sodium 137 mmol/L (135-145); VLDL Calculation 16.58 mg/dL (5.00-40.00)
== END | disposition home or self-care (01) ==
LOC: LABWHC1 07:06
PROVIDERS: ATTEND Family Medicine
DX: I10 Essential (primary) hypertension (principal); E89.0 Postprocedural hypothyroidism; E78.5 Hyperlipidemia, unspecified
CPT/HCPCS: 36415; 80048; 80061; 84439; 84443; 84480

== ENCOUNTER → 2023-10-01 | Outpatient (CLI) | payer MEDICAID, MEDICARE ==
[2023-10-01 11:29] LABS: Basophils # (A) 0.03 X 10*3/uL (0.00-0.10); Basophils % (A) 0.4 %; Eosinophils # (A) 0.14 X 10*3/uL (0.04-0.35); Eosinophils % (A) 1.8 %; HCT 45.7 % (39.6-50.0); HGB 15.5 g/dL (13.0-17.0); Lymphocytes # (A) 2.88 X 10*3/uL (0.90-5.00); Lymphocytes % (A) 37.4 %; MCH 30.7 pg (27.0-32.0); MCHC 33.9 g/dL (32.0-37.0); MCV 90.5 FL (80.0-97.0); Mean Platelet Volume 10.8 FL (9.5-12.2); Monocytes # (A) 0.68 X 10*3/uL (0.20-1.00); Monocytes % (A) 8.8 %; NRBC Per 100 WBC 0 X 10*3/uL (0.00-0.01); Neutrophils # (A) 3.94 X 10*3/uL (1.80-7.70); Neutrophils % (A) 51.2 %; Platelet Count 248 X 10*3/uL (140-440); RBC 5.05 X 10*6/uL (4.40-5.60); RDW 12.7 % (11.5-14.5)
[2023-10-01 14:06] LABS: ALT 29 U/L (10-49); AST 23 U/L (14-35); Albumin 4.6 g/dL (3.8-4.9); Albumin/Globulin Ratio 1.59 Ratio (1.60-3.17); Alkaline Phosphatase 75 U/L (41-126); BUN/Creat Ratio 16.44 Ratio (12.00-20.00); Blood Urea Nitrogen 14.8 mg/dL (9.0-27.0); Calcium 10.3 mg/dL (8.7-10.3); Carbon Dioxide 24.7 mmol/L (21.6-31.8); Chloride 103 mmol/L (96-109); Chol/HDL Ratio 4.71 Ratio; Globulin 2.9 g/dL (1.6-3.3); Glucose 118 mg/dL (70-110); LDL Cholesterol,Calculated 100.2 mg/dL (0.0-131.0); Potassium 4.1 mmol/L (3.5-5.5); Prostate Specific Antigen 3.18 ng/mL (0.000-4.500); Sodium 139 mmol/L (135-145); Total Bilirubin 0.7 mg/dL (0.3-1.2); Total Protein 7.5 g/dL (6.2-8.2)
== END | disposition home or self-care (01) ==
LOC: LABWHC1 06:56
PROVIDERS: ATTEND Family Medicine
DX: Z00.00 Encounter for general adult medical examination without abnormal findings (principal)
CPT/HCPCS: 36415; 80053; 80061; 84153; 84439; 84443; 85025

== ENCOUNTER → 2023-10-14 | Outpatient (CLI) | payer MEDICAID, MEDICARE | END | disposition home or self-care (01) | LOC: LABWHC1 07:25 | PROVIDERS: ATTEND Family Medicine | DX: R73.9 Hyperglycemia, unspecified (principal) | CPT/HCPCS: 36415; 83036 ==

== ENCOUNTER → 2023-10-31 | Outpatient (CLI) | payer MEDICAID, MEDICARE ==
[~2023-10-31] MED LIST changes: -DEXAMETHASONE SOD PHOSPHATE 4 MG/ML 1 ML VIAL IV ONE; -HYDROmorphone 0.5 MG/0.5 ML SYRINGE IVP PRN; -LACTATED RINGERS 1,000 ML IV SCH; -MIDAZOLAM 2 MG/2 ML VIAL IV PRN; -ONDANSETRON 4 MG/2 ML VIAL IVP ONE; -Pre Op ABX Message 1 EACH MISC MISCELLANE ONE; +REGADENOSON 0.4 MG/5 ML SYRINGE IV PRN; -SCOPOLAMINE 1.5MG/72HR PATCH TRANSDERM ONE
--- NOTE | 2023-10-31 11:49 | NM ---
EXAMINATION TYPE: NM stress lexiscan cardiolite DATE OF EXAM: 10/31/2023 COMPARISON: NONE CLINICAL INDICATION: Male, 63 years old with history of R06.02 SOB ON EXERTION; TECHNIQUE: After the intravenous administration of 10.39 mCi Tc 99m Sestamibi - Cardiolite resting S PECT images acquired 53 minutes post injection. The patient received 0.4mg Lexiscan, 26.1 mCi Tc 99m Sestamibi - Stress images obtained [address] injection FINDINGS: Review of stress and rest SPECT images demonstrates reduced uptake involving the apex and inferior an d inferior lateral wall appears to be fixed and compatible with prior infarct. No definite stress-ind uced reversible ischemia. There is reduction regional wall motion in these regions.. Estimated left v entricular ejection fraction of 57 %. IMPRESSION: No scintigraphic evidence for reversible ischemia. Sizable areas of fixed defect involving the inferi or, inferolateral and apical myocardium correlate for prior ischemia.
== END | disposition home or self-care (01) ==
LOC: RADNMMAIN 08:36
PROVIDERS: ATTEND Family Medicine
DX: R06.02 Shortness of breath (principal)
CPT/HCPCS: 93017; 78452; A9500; J2785

== ENCOUNTER → 2023-11-13 | Outpatient (CLI) | payer MEDICARE ==
[2023-11-13 15:05] LABS: HCT 46.4 % (39.6-50.0); HGB 15.6 g/dL (13.0-17.0); MCH 30.2 pg (27.0-32.0); MCHC 33.6 g/dL (32.0-37.0); MCV 89.9 FL (80.0-97.0); Mean Platelet Volume 10.7 FL (9.5-12.2); NRBC Per 100 WBC 0 X 10*3/uL (0.00-0.01); Platelet Count 262 X 10*3/uL (140-440); RBC 5.16 X 10*6/uL (4.40-5.60); RDW 12.9 % (11.5-14.5); WBC 7.27 X 10*3/uL (4.50-10.00)
[2023-11-13 15:47] LABS: Blood Urea Nitrogen 15.6 mg/dL (9.0-27.0); Carbon Dioxide 26.2 mmol/L (21.6-31.8); Chloride 102 mmol/L (96-109); Potassium 4.7 mmol/L (3.5-5.5); Sodium 139 mmol/L (135-145)
== END | disposition home or self-care (01) ==
LOC: LABPAT 10:37
PROVIDERS: ATTEND Internal Medicine Interventional Cardiology
DX: Z01.812 Encounter for preprocedural laboratory examination (principal); I25.10 Atherosclerotic heart disease of native coronary artery without angina pectoris
CPT/HCPCS: 36415; 80051; 82565; 84520; 85027

== ENCOUNTER → 2023-11-18 | Outpatient (CLI) | payer MEDICARE ==
--- NOTE | 2023-11-19 08:02 | CA ---
Transthoracic Echo Report Name: Medhat Weiss Age: 63 Gender: M : 1960 Exam Date: 11/18/2023 15:53 Exam Location: [facility] Ht (in): 72 Wt (lb): 268 Ordering Physician: Chirag Beck MD Attending/Referring Phys: Chirag Beck MD Photo Tech Elaina Alba, RDERNESTINE Procedure CPT: Indications: R06.02 Shortness of breath on exertion Cardiac Hx: Technical Quality: Fair Contrast 1: Total Dose (mL): Contrast 2: Total Dose (mL): MEASUREMENTS (Male / Female) Normal Values 2D ECHO LV Diastolic Diameter PLAX 5.0 cm 4.2 - 5.9 / 3.9 - 5.3 cm LV Systolic Diameter PLAX 3.9 cm IVS Diastolic Thickness 1.3 cm 0.6 - 1.0 / 0.6 - 0.9 cm LVPW Diastolic Thickness 1.3 cm 0.6 - 1.0 / 0.6 - 0.9 cm LV Relative Wall Thickness 0.5 RV Internal Dim ED PLAX 3.9 cm LA Systolic Diameter LX 3.8 cm 3.0 - 4.0 / 2.7 - 3.8 cm LV Diastolic Volume MOD BP 120.2 cm??? 67 - 155 / 56 - 104 cm??? LV Systolic Volume MOD BP 56.8 cm??? 22 - 58 / 19 - 49 cm??? LV Ejection Fraction MOD BP 52.7 % >= 55 % LV Cardiac Index MOD BP 1854.9 cm???/min???m??? LV Diastolic Volume MOD 4C 114.2 cm??? LV Systolic Volume MOD 4C 43.8 cm??? LV Ejection Fraction MOD 4C 61.7 % LV Cardiac Index MOD 4C 2060.4 cm???/min???m??? LV Diastolic Length 4C 8.0 cm LV Systolic Length 4C 7.1 cm LV Diastolic Volume MOD 2C 124.2 cm??? LV Systolic Volume MOD 2C 72.4 cm??? LV Ejection Fraction MOD 2C 41.7 % LV Cardiac Index MOD 2C 1513.9 cm???/min???m??? LV Diastolic Length 2C 7.8 cm LV Systolic Length 2C 8.0 cm LA Volume 120.7 cm??? 18 - 58 / 22 - 52 cm??? LA Volume Index 47.7 cm???/m??? 16 - 28 cm???/m??? M-MODE Aortic Root Diameter MM 3.8 cm MV E Point Septal Separation 1.2 cm AV Cusp Separation MM 2.7 cm DOPPLER AV Peak Velocity 136.1 cm/s AV Peak Gradient 7.4 mmHg AI Peak Velocity 333.0 cm/s AI Peak Gradient 44.4 mmHg AI Pressure Half Time 501.2 ms MV Area PHT 3.4 cm??? Mitral E Point Velocity 105.2 cm/s Mitral A Point Velocity 93.4 cm/s Mitral E to A Ratio 1.1 MV Deceleration Time 223.8 ms MV E' Velocity 8.2 cm/s Mitral E to MV E' Ratio 12.9 TR Peak Velocity 292.0 cm/s TR Peak Gradient 34.1 mmHg Right Ventricular Systolic Press 38.6 mmHg FINDINGS Left Ventricle Left ventricular ejection fraction is estimated at 55-60 %. Left ventricular cavity size normal. Mild concentric left ventricular hypertrophy. Right Ventricle Mild right ventricular dilatation. Mild pulmonary hypertension. Right Atrium Normal right atrial size. Left Atrium Severely increased left atrial volume. Mildly increased left atrial area. Mitral Valve Structurally normal mitral valve. Mild mitral regurgitation. Aortic Valve Trileaflet aortic valve. Trace to mild aortic regurgitation. Tricuspid Valve Structurally normal tricuspid valve. Mild tricuspid regurgitation. Pulmonic Valve Structurally normal pulmonic valve. No pulmonic regurgitation. Pericardium No pericardial effusion. Aorta Mild aortic dilatation at the level of the sinuses of valsalva 38 mm CONCLUSIONS Left ventricular ejection fraction 55-60% Mild to moderately dilated left atrium RVSP 38 Mild mitral regurgitation Previewed by: Dr. Palomo Lane DO (Electronically Signed) Final Date: 19 November 2023 08:01
== END | disposition home or self-care (01) ==
LOC: RADECHMAIN 15:45
PROVIDERS: ATTEND Family Medicine
DX: I34.0 Nonrheumatic mitral (valve) insufficiency (principal); I51.7 Cardiomegaly; R06.02 Shortness of breath
CPT/HCPCS: 93306

== ENCOUNTER → 2023-11-26 | Day surgery (SDC) | payer MEDICARE ==
[~2023-11-26] MED LIST changes: +ALPRAZolam 0.25 MG TAB PO PRN; +ALPRAZolam 0.5 MG TAB PO PRN; +ASPIRIN 325 MG TAB PO ONE; +HEPARIN SODIUM 1,000 UN/ML (10ML VL) IVP ONE; +HEPARIN SODIUM 1,000 UN/ML (10ML VL) ONE; +HEPARIN SODIUM,PORCINE (1 ML) 2,500 UNIT in SODIUM CHLORIDE 0.9% 250 ML IRRIGATION PRN; +HEPARIN SODIUM,PORCINE 10,000 UNIT in SODIUM CHLORIDE 0.9% 1,000 ML IRRIGATION PRN; +IOPAMIDOL-370 100ML BTL INJ ONE; +LIDOCAINE 1% INJ 10MG/ML (20 ML MDV) SQ ONE; +MIDAZOLAM 2 MG/2 ML VIAL IVP ONE; +NITROGLYCERIN SL TABS 0.4 MG TAB SUBLINGUAL PRN; -REGADENOSON 0.4 MG/5 ML SYRINGE IV PRN; +RX INFO: IV CONTRAST WAS GIVEN 1 EACH MISC MISCELLANE PRN; +SODIUM CHLORIDE 0.9% 1,000 ML IV ONE; +SODIUM CHLORIDE 0.9% 1,000 ML IV SCH; +SODIUM CHLORIDE 0.9% 1,000 ML in EMPTY BAG 1 BAG IV SCH; +VERAPAMIL 2.5 MG/ML 2 ML AMP ONE; +VERAPAMIL SYRINGE (5 MG/10 ML) INTRAARTER ONE
[2023-11-26 07:18] VITALS: RESP 16; TEMP 97.9
--- NOTE | 2023-11-26 10:34 | P.PCN ---
Date of Procedure: 11/26/23 Operative Findings: CARDIAC CATHETERIZATION PERFORMING PHYSICIAN: Jonah Pope MD, RPVI PROCEDURE PERFORMED: 1. Selective right and left coronary angiogram 2. Ultrasound-guided access of the right radial artery INDICATION: Symptomatic 63-year-old gentleman who underwent myocardial perfusion imaging stress test came in to be of normal COMPLICATION: None APPROACH: Right radial artery LEVEL OF SEDATION: Moderate with a sedation length of 10 minutes PROCEDURE DESCRIPTION: After obtaining an informed consent, the patient was brought to cardiac geophysical laboratory supervisor. Local anesthesia was performed using lidocaine subcutaneously. The right radial artery was cannulated using Seldinger technique, the guidewire passed easily, following that we advanced a 5-Niuean sheath dilator assembly, the wire and dilator were removed and sheath was flushed. Following that, 2 mg of verapamil along with 5000 unit heparin were given. Selective right and left coronary angiogram using a 6-Niuean JR4 and JL 3.5 catheters. The procedure was completed there was no complication. SELECTIVE CORONARY ANGIOGRAM: The right coronary artery: Large-caliber vessel and a dominant vessel and appeared to be angiographically normal. Distally bifurcates into PDA and PLV branches and both are normal Left main: Is angiographically normal. The left circumflex: Large caliber vessel nondominant vessel. Its angiographically normal. Gives rises into the first obtuse marginal branch which bifurcates into 2 subbranches both appeared to be angiographically normal The left anterior descending artery: Large-caliber vessel. The LAD proximally has mild disease only. The mid and distal LAD appears to be normal. Gives rises into multiple small diagonal branches appeared to be normal CONCLUSION: 1. Mild disease involving the proximal LAD POSTPROCEDURE MANAGEMENT: Medical treatment
[2023-11-26 14:31] VITALS: BP 122/63; PULSE 68
== END ==
LOC: CATHCVL 06:36
PROVIDERS: ATTEND Internal Medicine Interventional Cardiology
DX: I25.10 Atherosclerotic heart disease of native coronary artery without angina pectoris (principal); I10 Essential (primary) hypertension; E78.5 Hyperlipidemia, unspecified; Z82.49 Family history of ischemic heart disease and other diseases of the circulatory system; Z79.82 Long term (current) use of aspirin; Z79.899 Other long term (current) drug therapy
CPT/HCPCS: C1769; C1894; J2250; J2001; J1644; Q9967; 76937; 93454